=== PATIENT | male | born 1995 | race Caucasian/White ===

== ENCOUNTER 2017-01-20 16:18 | Emergency (ER) | payer OTHER ==
[2017-01-20 16:34] VITALS: BP 138/71
--- NOTE | 2017-01-22 08:01 | ED ---
Laceration/Wound HPI - HPI Summary HPI Summary: Patient arrives to ED after injury to the nail bed of the left index finger with a knife while cutting vegetables about 1 hour ago. Bleeding was minimal. Nail has been cut through. Pulses intact bilaterally, denies numbness and tingling. Denies other injuries. Denies blood thinners or other medications. - History of Current Complaint Stated Complaint: LT INDEX FINGER LAC Time Seen by Provider: 01/20/17 16:41 Hx Obtained From: Patient Mechanism of Injury: Sharp/Blunt Trauma Onset/Duration: Sudden Onset Aggravating: Nothing Alleviating: Compression Timing: Constant Onset Severity: Mild Current Severity: Mild Pain Intensity: 3 Pain Scale Used: 0-10 Numeric Associated Signs & Symptoms: Negative Related Hx: Dominant Hand (Right), Recent Trauma - Additional Pertinent History Primary Care Physician: [id number] - Allergy/Home Medications Allergies/Adverse Reactions: Allergies Allergy/AdvReac Type Severity Reaction Status Date / Time Latex Allergy Mild Itching Verified 08/31/16 11:19 PMH/Surg Hx/FS Hx/Imm Hx Previously Healthy: Yes Endocrine/Hematology History: Denies: Hx Diabetes Cardiovascular History: Denies: Hx Hypertension, Hx Pacemaker/ICD Respiratory History: Reports: Hx Asthma - very mild GI History: Reports: Hx Obstructive Bowel - 2 years ago, Other GI Disorders - hernia, unsure what kind -- right groin region History: Denies: Hx Dialysis, Hx Renal Disease Musculoskeletal History: Reports: Other Musculoskeletal History - growth plate in ankle fx in 4th grade Sensory History: Reports: Hx Contacts or Glasses Denies: Hx Hearing Aid Opthamlomology History: Reports: Hx Contacts or Glasses Neurological History: Reports: Hx Headaches, Hx Migraine Denies: Hx Seizures Psychiatric History: Reports: Hx Anxiety, Hx Attention Deficit Hyperactivity Disorder, Hx Depression, Hx Panic Disorder - ANXIETY DISORDER, Hx Inpatient Treatment, Hx Community Mental Health Tx, Hx Bipolar Disorder, Hx Suicide Attempt, Other Psychiatric Issues/Disorders - OCD Denies: Hx Eating Disorder, Hx of Violent Episodes Against Others - Surgical History Surgery Procedure, Year, and Place: hernia repair in 4th grade and 10th grade Hx Anesthesia Reactions: No Infectious Disease History: No Infectious Disease History: Denies: Traveled Outside the [place] in Last 30 Days - Family History Known Family History: Negative: Other - hernia - Social History Occupation: Student Lives: Alone Alcohol Use: Rare Hx Substance Use: No Substance Use Type: Reports: None Hx Tobacco Use: No Smoking Status (MU): Never Smoked Tobacco Review of Systems Constitutional: Negative Cardiovascular: Negative Respiratory: Negative Gastrointestinal: Negative Positive: no symptoms reported, see HPI Musculoskeletal: Negative Positive: Other - small .5cm laceration to the nail bed. Neurological: Negative Psychological: Normal All Other Systems Reviewed And Are Negative: Yes Physical Exam Triage Information Reviewed: Yes Vital Signs On Initial Exam: Initial Vitals Temp Pulse Resp BP Pulse Ox 98.6 F 81 18 138/71 100 01/20/17 16:31 01/20/17 16:31 01/20/17 16:31 01/20/17 16:31 01/20/17 16:31 Vital Signs Reviewed: Yes Appearance: Positive: Well-Appearing, Well-Nourished Skin: Positive: Warm, Skin Color Reflects Adequate Perfusion, Other - .5cm laceration to the radial side of the nail bed of the left index finger not involving base of the nail. Eyes: Positive: EOMI, AMARILIS, Conjunctiva Clear Neck: Positive: Supple, Nontender Respiratory/Lung Sounds: Positive: Breath Sounds Present Cardiovascular: Positive: Normal Musculoskeletal: Positive: Normal, Strength/ROM Intact Neurological: Positive: Sensory/Motor Intact, Normal Gait, Speech Normal, Other - pinprick test normal Diagnostics - Vital Signs Vital Signs Temp Pulse Resp BP Pulse Ox 01/20/17 18:53 98.3 F 01/20/17 16:31 98.6 F 81 18 138/71 100 - Laboratory Lab Statement: Any lab studies that have been ordered have been reviewed, and results considered in the medical decision making process. Laceration Repair Course/Dx - Course Course Of Treatment: digital block of left index finger. nail removed. no laceration of the skin under the nail. xeroform occlusive gauze applied. wrapped with gauze. patient tolerated well. discharge instructions included care for wound and follow up if needed at [facility]. Patient agrees with plan. - Differential Dx Differental Diagnoses: Laceration, Puncture Wound, Tendon Laceration - Clinical Impression Provider Diagnoses: Nail avulsion, finger Discharge - Discharge Plan Condition: Stable Disposition: HOME Patient Education Materials: Toenail/Fingernail Removal (ED), Nail Avulsion (ED ) Referrals: Amanda Ingram MD [Primary Care Provider] - Additional Instructions: Follow up with your PCP as needed. If you develop signs of infection such as redness, warmth, discharge or you develop a fever.
== END 2017-01-20 18:53 | disposition home or self-care (01) ==
LOC: ED 16:18
DX: S61.211A Laceration without foreign body of left index finger without damage to nail, initial encounter (principal); W26.0XXA Contact with knife, initial encounter; Y93.9 Activity, unspecified; Y92.9 Unspecified place or not applicable
CPT/HCPCS: 99282

== ENCOUNTER 2017-02-06 19:42 | Emergency (ER) | payer OTHER ==
[2017-02-06 21:25] LABS: Hematocrit 48 % (42-52); Hemoglobin 15.9 g/dl (14.0-18.0); Mean Corpuscular HGB Conc 33 g/dl (31-36); Mean Corpuscular Hemoglobin 28 pg (27-31); Mean Corpuscular Volume 86 fL (80-94); Mean Platelet Volume 9 um3 (7.4-10.4); Red Blood Count 5.59 10^6/ul (4.0-5.4); Red Cell Distribution Width 14 % (10.5-15); White Blood Count 11.4 10^3/ul (3.5-10.8)
[2017-02-06 21:40] LABS: Albumin 4.5 g/dL (3.2-5.2); BUN/Creatinine Ratio 17.2 (8-20); C Reactive Protein 2.06 mg/L (< 5.00); Calcium 9.4 mg/dL (8.6-10.3); EGFR African American 133.2 (>60); EGFR Non-African American 103.6 (>60); Globulin 2.7 g/dL (2-4); Potassium 3.6 mmol/L (3.5-5.0); Total Bilirubin 0.3 mg/dL (0.2-1.0); Total Protein 7.2 g/dL (6.4-8.9)
[2017-02-06 22:22] VITALS: BP 111/71
--- NOTE | 2017-02-22 07:35 | ED ---
layne Hoover Timothy, scribed for Jadon Hendrix MD on 02/06/17 at 2040 . Abdominal Pain/Male - HPI Summary HPI Summary: Bautista Faith is a 21 yo male presenting to [facility] with drainage and 7/10 chronic right groin pain and clear lymph discharge from a previous surgical site. His girl friend is present in room. Pt states surgery was in [place] for correction of complications from hernia repair, in which mesh had migrated down into the groin, side effects included lymph edema. The surgery also involved gluing some lymph vessels shut. This afternoon he states he "burst a leak" and has been exuding clear lymph fluid. The problem has not resolved even after several hours. He states he is currently dehydrated due to loss of fluid. His MHx includes migraine, asthma, obstructive bowel, hernia right groin, ADHD, bipolar disorder, panic/anxiety disorder, depression, OCD, suicide attempt. - History of Current Complaint Chief Complaint: EDAbdPain Stated Complaint: DRAINAGE FROM SURGICAL SITE Time Seen by Provider: 02/06/17 20:05 Hx Obtained From: Patient Onset/Duration: Sudden Onset, Lasting Days, Still Present Timing: Constant Severity Initially: Moderate Severity Currently: Moderate Pain Intensity: 7 Pain Scale Used: 0-10 Numeric Location: Groin - right side Radiates: No Aggravating Factor(s): Nothing Alleviating Factor(s): Nothing Associated Signs And Symptoms: Positive: Negative - Allergies/Home Medications Allergies/Adverse Reactions: Allergies Allergy/AdvReac Type Severity Reaction Status Date / Time Latex Allergy Mild Itching Verified 08/31/16 11:19 PMH/Surg Hx/FS Hx/Imm Hx Endocrine/Hematology History: Denies: Hx Diabetes Cardiovascular History: Denies: Hx Hypertension, Hx Pacemaker/ICD Respiratory History: Reports: Hx Asthma - very mild GI History: Reports: Hx Obstructive Bowel - 2 years ago, Other GI Disorders - hernia, unsure what kind -- right groin region History: Denies: Hx Dialysis, Hx Renal Disease Musculoskeletal History: Reports: Other Musculoskeletal History - growth plate in ankle fx in 4th grade Sensory History: Reports: Hx Contacts or Glasses Denies: Hx Hearing Aid Opthamlomology History: Reports: Hx Contacts or Glasses Neurological History: Reports: Hx Headaches, Hx Migraine Denies: Hx Seizures Psychiatric History: Reports: Hx Anxiety, Hx Attention Deficit Hyperactivity Disorder, Hx Depression, Hx Panic Disorder - ANXIETY DISORDER, Hx Inpatient Treatment, Hx Community Mental Health Tx, Hx Bipolar Disorder, Hx Suicide Attempt, Other Psychiatric Issues/Disorders - OCD Denies: Hx Eating Disorder, Hx of Violent Episodes Against Others - Surgical History Surgery Procedure, Year, and Place: hernia repair in 4th grade and 10th grade Hx Anesthesia Reactions: No Infectious Disease History: Denies: Traveled Outside the [place] in Last 30 Days - Family History Known Family History: Positive: Other - bipolar disorder, anxiety, depression - Social History Alcohol Use: Rare Hx Substance Use: No Substance Use Type: Reports: None Hx Tobacco Use: No Smoking Status (MU): Never Smoked Tobacco Review of Systems Constitutional: Other - "feels dehydrated" Negative: Fever, Chills Eyes: Negative Negative: Erythema ENT: Negative Negative: Sore Throat Cardiovascular: Negative Negative: Chest Pain Respiratory: Negative Negative: Shortness Of Breath, Cough Gastrointestinal: Other - exuding clear lymph fluid from surgical site in right groin Positive: Abdominal Pain - groin. Negative: Vomiting, Nausea Genitourinary: Negative Negative: dysuria, hematuria Musculoskeletal: Negative Negative: Myalgia, Edema - legs Positive: Other - drainage from surgical site in right groin. Negative: Rash Neurological: Negative Psychological: Normal All Other Systems Reviewed And Are Negative: Yes Physical Exam - Summary Physical Exam Summary: Constitutional: Well-developed, Well-nourished, Alert. (-) Distressed Skin: Warm, Dry HENT: Normocephalic; Atraumatic Eyes: Conjunctiva normal Neck: Musculoskeletal ROM normal neck. (-) JVD, (-) Stridor, (-) Tracheal deviation Cardio: Rhythm regular, rate normal, Heart sounds normal; Intact distal pulses; The pedal pulses are 2+ and symmetric. Radial pulses are 2+ and symmetric. (-) Murmur Pulmonary/Chest wall: Effort normal. (-) Respiratory distress, (-) Wheezes, (-) Rales Abd: Soft, (-) Tenderness, (-) Distension, (-) Guarding, (-) Rebound. Serous fluid leaking from open pore in the right inguinal region. no induration, no erythema, no tenderness to palpation, easy to exude fluid with pressure, fluid is not malodorous Musculoskeletal: (-) Edema Lymph: (-) Cervical adenopathy Neuro: Alert, Oriented x3 Psych: Mood and affect Normal Triage Information Reviewed: Yes Vital Signs On Initial Exam: Initial Vitals Temp Pulse Resp BP Pulse Ox 97.9 F 72 18 132/82 100 02/06/17 19:45 02/06/17 19:45 02/06/17 19:45 02/06/17 19:45 02/06/17 19:45 Vital Signs Reviewed: Yes Diagnostics - Vital Signs Vital Signs Temp Pulse Resp BP Pulse Ox 02/06/17 19:45 97.9 F 72 18 132/82 100 - Laboratory Result Diagrams: 02/06/17 21:15 02/06/17 21:15 Lab Statement: Any lab studies that have been ordered have been reviewed, and results considered in the medical decision making process. Abdominal Pain Fem Course/Dx - Course Assessment/Plan: Bautista Faith is a 21 yo male presenting to [facility] with 7/10 right groin pain and drainage from a surgical site for correction of complications of hernia repair. Pt requested not to have a CT A/P done. After clinical examination, and review of his lab work, as well as discussion with Dr. Batres, he will be discharged home with lymphangioma. He was encouraged to engage in isotonic replacemnet of 2-3 L. - Diagnoses Provider Diagnoses: Lymphangioma - Provider Notifications Discussed Care Of Patient With: 2153 - Dr. Batres (surgery) - discussed Pt condition and best options for out-patient follow-up. Recommends Pt see him for follow up. Discharge - Discharge Plan Condition: Stable Disposition: HOME Patient Education Materials: Lymphadenopathy (ED) Forms: *School Release Referrals: Amanda Ingram MD [Primary Care Provider] - Lyle Batres MD [Medical Doctor] - 3 Days Additional Instructions: Please follow up with Dr. Batres regarding your visit to the emergency department today. Return to the emergency department with any new or recurring symptoms. The documentation as recorded by the layne kline Timothy accurately reflects the service I personally performed and the decisions made by me, Jadon Hendrix MD.
== END 2017-02-06 22:20 | disposition home or self-care (01) ==
LOC: ED 19:42
DX: D18.1 Lymphangioma, any site (principal); R10.30 Lower abdominal pain, unspecified
CPT/HCPCS: 36415; 80053; 85025; 86140; 99282

== ENCOUNTER 2017-02-08 11:13 | Emergency (ER) | payer OTHER ==
[2017-02-08 13:17] LABS: Hematocrit 48 % (42-52); Hemoglobin 16.3 g/dl (14.0-18.0); Mean Corpuscular HGB Conc 34 g/dl (31-36); Mean Corpuscular Hemoglobin 29 pg (27-31); Mean Corpuscular Volume 85 fL (80-94); Mean Platelet Volume 9 um3 (7.4-10.4); Red Blood Count 5.62 10^6/ul (4.0-5.4); Red Cell Distribution Width 14 % (10.5-15); White Blood Count 8.4 10^3/ul (3.5-10.8)
[2017-02-08 13:34] LABS: Albumin 4.3 g/dL (3.2-5.2); BUN/Creatinine Ratio 14.4 (8-20); C Reactive Protein 2.07 mg/L (< 5.00); Calcium 9.4 mg/dL (8.6-10.3); EGFR African American 138.4 (>60); EGFR Non-African American 107.6 (>60); Globulin 2.6 g/dL (2-4); Potassium 3.9 mmol/L (3.5-5.0); Total Bilirubin 0.4 mg/dL (0.2-1.0); Total Protein 6.9 g/dL (6.4-8.9)
--- NOTE | 2017-02-08 14:03 | ED ---
Irma Hoover Alok, scribed for Nabil Aviles MD on 02/08/17 at 1254 . Lower Extremity - HPI Summary HPI Summary: 21 y/o male presents to the ED with a discharge coming from his right groin area. This discharge is localized to the region of the groin where pt last had surgery for Lymphedema done at the pt's residence in [place], [place]. This surgery done in November was preceded by two hernia surgeries in 2005 and 2011. Currently, pt's right groin area has been leaking for the past three days, slowing down while in supine position. Pt also complains to neck pain. Pt denies tobacco, EtOH, or drug use. - History of Current Complaint Chief Complaint: EDGeneral Stated Complaint: RIGHT GROIN PAIN , Time Seen by Provider: 02/08/17 12:37 Hx Obtained From: Patient Onset of Pain: Days Onset/Duration: Days Severity Initially: Moderate Severity Currently: Moderate Pain Intensity: 6 Pain Scale Used: 0-10 Numeric Timing: Constant Location: Is Discrete @ - Right Groin Area Lymphedema Surgery region Associated Signs And Symptoms: Positive: Other - Discharge from right groin area , neck pain Aggravating Factor(s): Nothing Alleviating Factor(s): Rest - Allergies/Home Medications Allergies/Adverse Reactions: Allergies Allergy/AdvReac Type Severity Reaction Status Date / Time Latex Allergy Mild Itching Verified 08/31/16 11:19 PMH/Surg Hx/FS Hx/Imm Hx Endocrine/Hematology History: Denies: Hx Diabetes Cardiovascular History: Denies: Hx Hypertension, Hx Pacemaker/ICD Respiratory History: Reports: Hx Asthma - very mild GI History: Reports: Hx Obstructive Bowel - 2 years ago, Other GI Disorders - hernia, unsure what kind -- right groin region History: Denies: Hx Dialysis, Hx Renal Disease Musculoskeletal History: Reports: Other Musculoskeletal History - growth plate in ankle fx in 4th grade Sensory History: Reports: Hx Contacts or Glasses Denies: Hx Hearing Aid Opthamlomology History: Reports: Hx Contacts or Glasses Neurological History: Reports: Hx Headaches, Hx Migraine Denies: Hx Seizures Psychiatric History: Reports: Hx Anxiety, Hx Attention Deficit Hyperactivity Disorder, Hx Depression, Hx Panic Disorder - ANXIETY DISORDER, Hx Inpatient Treatment, Hx Community Mental Health Tx, Hx Bipolar Disorder, Hx Suicide Attempt, Other Psychiatric Issues/Disorders - OCD Denies: Hx Eating Disorder, Hx of Violent Episodes Against Others - Surgical History Surgery Procedure, Year, and Place: hernia repair in 4th grade and 10th grade Hx Anesthesia Reactions: No Infectious Disease History: No Infectious Disease History: Denies: Traveled Outside the US in Last 30 Days - Family History Known Family History: Negative: Other - hernia - Social History Occupation: Student Alcohol Use: Rare Hx Substance Use: No Substance Use Type: Reports: None Hx Tobacco Use: No Smoking Status (MU): Never Smoked Tobacco Review of Systems Negative: Fever Positive: other - Right Groin pain with discharge at post surgury region Positive: Other - neck pain All Other Systems Reviewed And Are Negative: Yes Physical Exam - Summary Physical Exam Summary: VITAL SIGNS: Reviewed. GENERAL: ~Patient is a well developed and nourished male who is lying comfortable in the stretcher. ~Patient is not in any acute respiratory distress. HEAD AND FACE: Normocephalic EYES: PERRLA, EOMI x 2. EARS: Hearing grossly intact. MOUTH: Oropharynx within normal limits. NECK: Supple, trachea is midline, no adenopathy, no JVD, no carotid bruit. CHEST: Symmetric, no tenderness at palpation LUNGS: Clear to auscultation bilaterally. No wheezing or crackles. CVS: Regular rate and rhythm, S1 and S2 present, no murmurs or gallops appreciated. ABDOMEN: Soft, non-tender. Bowel sounds are normal. No abdominal abnormal pulsations. EXTREMITIES: Full ROM in all major joints, no edema, no cyanosis or clubbing. NEURO: Alert and oriented x 3. No acute neurological deficits. Speech is normal and follows commands. SKIN: Dry and warm GROIN: Femoral hernia with no bulging or leaking of any fluids. Triage Information Reviewed: Yes Vital Signs On Initial Exam: Initial Vitals Temp Pulse Resp BP Pulse Ox 97.2 F 62 16 129/67 100 02/08/17 11:15 02/08/17 11:15 02/08/17 11:15 02/08/17 11:15 02/08/17 11:15 Vital Signs Reviewed: Yes - Danica Coma Scale Coma Scale Total: 15 Diagnostics - Vital Signs Vital Signs Temp Pulse Resp BP Pulse Ox 02/08/17 12:10 61 98 02/08/17 12:08 98.7 F 69 20 142/75 98 02/08/17 11:15 97.2 F 62 16 129/67 100 - Laboratory Lab Results: Lab Results 02/08/17 02/08/17 02/08/17 Range/Units 13:09 13:09 13:09 WBC 8.4 (3.5-10.8) 10^3/ul RBC 5.62 H (4.0-5.4) 10^6/ul Hgb 16.3 (14.0-18.0) g/dl Hct 48 (42-52) % MCV 85 (80-94) fL MCH 29 (27-31) pg MCHC 34 (31-36) g/dl RDW 14 (10.5-15) % Plt Count 184 (150-450) 10^3/ul MPV 9 (7.4-10.4) um3 Neut % (Auto) 60.9 (38-83) % Lymph % (Auto) 27.5 (25-47) % [place] % (Auto) 8.0 (1-9) % Eos % (Auto) 2.3 (0-6) % Baso % (Auto) 1.3 (0-2) % Absolute Neuts (auto) 5.1 (1.5-7.7) 10^3/ul Absolute Lymphs (auto) 2.3 (1.0-4.8) 10^3/ul Absolute Monos (auto) 0.7 (0-0.8) 10^3/ul Absolute Eos (auto) 0.2 (0-0.6) 10^3/ul Absolute Basos (auto) 0.1 (0-0.2) 10^3/ul Absolute Nucleated RBC 0.01 10^3/ul Nucleated RBC % 0.1 Sodium 139 (133-145) mmol/L Potassium 3.9 (3.5-5.0) mmol/L Chloride 107 (101-111) mmol/L Carbon Dioxide 28 (22-32) mmol/L Anion Gap 4 (2-11) mmol/L BUN 13 (6-24) mg/dL Creatinine 0.90 (0.67-1.17) mg/dL Est GFR ( Amer) 138.4 (>60) Est GFR (Non-Af Amer) 107.6 (>60) BUN/Creatinine Ratio 14.4 (8-20) Glucose 93 (70-100) mg/dL Lactic Acid 1.3 (0.5-2.0) mmol/L Calcium 9.4 (8.6-10.3) mg/dL Total Bilirubin 0.40 (0.2-1.0) mg/dL AST 21 (13-39) U/L ALT 61 H (7-52) U/L Alkaline Phosphatase 65 (34-104) U/L C-Reactive Protein 2.07 (< 5.00) mg/L Total Protein 6.9 (6.4-8.9) g/dL Albumin 4.3 (3.2-5.2) g/dL Globulin 2.6 (2-4) g/dL Albumin/Globulin Ratio 1.7 (1-3) Lipase 17 (11.0-82.0) U/L Result Diagrams: 02/08/17 13:09 02/08/17 13:09 Lab Statement: Any lab studies that have been ordered have been reviewed, and results considered in the medical decision making process. Lower Extremity Course/Dx - Course Course Of Treatment: 21 y/o male presents to the ED with a discharge coming from his right groin area. This discharge is localized to the region of the groin where pt last had surgery for Lymphedema done at the pt's residence in [place], [place]. This surgery done in November was preceded by two hernia surgeries in 2005 and 2011. Currently, pt's right groin area has been leaking for the past three days, slowing down while in supine position. Pt also complains to neck pain. Pt denies tobacco, EtOH, or drug use. Assessment/Plan: Blood work wnl. No signs of infection. Lymph leakage shows decreased. He will f/u with vascular surgeon at [facility]. There are no signs of incarcerated hernia. Patient did not require pain medications. I discussed all the findings and test results with the patient. Patient was instructed to return to the emergency room immediately if any of the symptoms return or worsens. Plan of care was discussed with the patient and understands and agrees. All questions were answered at patient satisfaction. There were no further complaints or concerns. Lung exam before discharge: CTA B /L. Good air exchange. No wheezing or crackles heard. CVS: S1 and S2 present. No murmurs appreciated. Patient is alert and oriented x 3. Patient is hemodynamically stable. Patient will be discharged home with follow up incident response engineer in the next 2-3 days - Diagnoses Differential Diagnosis/HQI/PQRI: Positive: Bursitis, Cellulitis, Infection, Other - Hernia Provider Diagnoses: Lymph leak Discharge - Discharge Plan Condition: Stable Disposition: HOME Referrals: Amanda Ingram MD [Primary Care Provider] - Nick Bacon MD [Medical Doctor] - 3 Days Additional Instructions: Please follow up with Dr. Bacon (Vascular Surgeon) in the next few days. The documentation as recorded by the Irma klien Alok accurately reflects the service I personally performed and the decisions made by Stefan vazquez Walter, MD.
[2017-02-08 14:23] LABS: Urine Bilirubin Negative (Negative); Urine Glucose Negative (Negative); Urine Nitrite Negative (Negative)
[2017-02-08 14:24] VITALS: BP 117/66
== END 2017-02-08 14:23 | disposition home or self-care (01) ==
LOC: ED 11:13
DX: I89.8 Other specified noninfective disorders of lymphatic vessels and lymph nodes (principal); M54.2 Cervicalgia
CPT/HCPCS: 36415; 80053; 81003; 83605; 83690; 85025; 86140; 99283

== ENCOUNTER 2017-12-11 18:45 | Emergency (ER) | payer OTHER ==
[2017-12-11] MEDS ORDERED: Albuterol 2.5 MG/3 ML NEB.SOL* (0.083%) INH ONE (19:10)
[2017-12-11] MEDS ORDERED: NS 0.9% 1000 ML* 1,000 ML IV ONE (19:10)
[2017-12-11 19:26] LABS: ABS Basophils 0.1 10^3/ul (0-0.2); ABS Eosinophils 0.2 10^3/ul (0-0.6); ABS Lymphocytes 1.7 10^3/ul (1.0-4.8); ABS Monocytes 0.5 10^3/ul (0-0.8); ABS Neutrophils 3.9 10^3/ul (1.5-7.7); ABS Nucleated RBC 0 10^3/ul; Eosinophil % 2.9 % (0-6); Hematocrit 47 % (42-52); Hemoglobin 16.1 g/dl (14.0-18.0); Lymphocyte % 26.7 % (25-47); Mean Corpuscular HGB Conc 35 g/dl (31-36); Mean Corpuscular Hemoglobin 31 pg (27-31); Mean Corpuscular Volume 90 fL (80-94); Mean Platelet Volume 8 um3 (7.4-10.4); Nucleated Red Blood Cells % 0; Platelet Count 173 10^3/ul (150-450); Red Blood Count 5.19 10^6/ul (4.0-5.4); Red Cell Distribution Width 14 % (10.5-15); White Blood Count 6.4 10^3/ul (3.5-10.8)
[2017-12-11] MEDS ORDERED: Mometasone/Formoter 200/5 MDI INH ONE (19:32)
[2017-12-11] MEDS ORDERED: Montelukast Sodium TAB* 10 MG PO ONE (19:32)
[2017-12-11] MEDS ORDERED: Fluticasone-Salmeterol 500-50* DISKUS INH ONE (19:32)
[2017-12-11 19:41] LABS: EGFR Non-African American 84.5 (>60)
--- NOTE | 2017-12-11 19:41 | RAD ---
HISTORY: Cough COMPARISONS: December 10, 2017 VIEWS: 4: Frontal dual-energy and lateral views of the chest. FINDINGS: CARDIOMEDIASTINAL SILHOUETTE: The cardiomediastinal silhouette is normal. RAHEL: The rahel are normal. PLEURA: The costophrenic angles are sharp. No pleural abnormalities are noted. LUNG PARENCHYMA: The lungs are clear. ABDOMEN: The upper abdomen is clear. There is no subphrenic gas. BONES AND SOFT TISSUES: No bone or soft tissue abnormalities are noted. OTHER: None. IMPRESSION: NO ACTIVE CARDIOPULMONARY DISEASE.
--- NOTE | 2017-12-11 21:37 | ED ---
Taina Hoover Julia, scribed for Sukhi Izaguirre MD on 12/11/17 at 1931 . Complex/Multi-Sys Presentation - HPI Summary HPI Summary: This patient is a 22 year old M presenting to [facility] with a chief complaint of worsening cough and flu-like symptoms for the past 5 weeks. Patient reports cough with bloody sputum, SOB, headache, chest and abdominal soreness. The patient rates the pain 7/10 in severity. Symptoms aggravated by deep breaths. Patient is unsure if cold or flu. He has been taking antibiotics for past 10 days with a dx of bronchitis. He reports recent CXR is negative for PNA. - History Of Current Complaint Chief Complaint: EDFluSymptoms Hx Obtained From: Patient Onset/Duration: Lasting Weeks, Still Present Timing: Constant Severity Currently: Mild Severity Initially: Moderate Aggravating Factor(s): deep breaths Associated Signs And Symptoms: Positive: Other - cough with bloody sputum, SOB, headache, chest and abdominal soreness Related History: Recent Illness, Similar Episode/Diagnosed As: - bronchitis - Allergies/Home Medications Allergies/Adverse Reactions: Allergies Allergy/AdvReac Type Severity Reaction Status Date / Time MS Latex [Latex] Allergy Mild Itching Verified 10/03/17 15:18 PMH/Surg Hx/FS Hx/Imm Hx Endocrine/Hematology History: Denies: Hx Diabetes Cardiovascular History: Denies: Hx Hypertension, Hx Pacemaker/ICD Respiratory History: Reports: Hx Asthma - very mild GI History: Reports: Hx Obstructive Bowel - 2 years ago, Other GI Disorders - hernia, unsure what kind -- right groin region History: Denies: Hx Dialysis, Hx Renal Disease Musculoskeletal History: Reports: Other Musculoskeletal History - growth plate in ankle fx in 4th grade Sensory History: Reports: Hx Contacts or Glasses Denies: Hx Hearing Aid Opthamlomology History: Reports: Hx Contacts or Glasses Neurological History: Reports: Hx Headaches, Hx Migraine Denies: Hx Seizures Psychiatric History: Reports: Hx Anxiety, Hx Attention Deficit Hyperactivity Disorder, Hx Depression, Hx Panic Disorder - ANXIETY DISORDER, Hx Inpatient Treatment, Hx Community Mental Health Tx, Hx Bipolar Disorder, Hx Suicide Attempt, Other Psychiatric Issues/Disorders - OCD Denies: Hx Eating Disorder, Hx of Violent Episodes Against Others - Surgical History Surgery Procedure, Year, and Place: hernia repair in 4th grade and 10th grade. HERNIA REPAIR 11/2015 WITH MESH Hx Anesthesia Reactions: No Infectious Disease History: No Infectious Disease History: Denies: Traveled Outside the [place] in Last 30 Days - Family History Known Family History: Negative: Other - hernia - Social History Alcohol Use: Rare Hx Substance Use: No Substance Use Type: Reports: None Hx Tobacco Use: No Smoking Status (MU): Never Smoked Tobacco Review of Systems Positive: Ear Ache Cardiovascular: Negative Positive: Chest Pain Positive: Shortness Of Breath, Cough Positive: Abdominal Pain Genitourinary: Negative Positive: no symptoms reported Musculoskeletal: Negative Skin: Negative Positive: Headache Positive: Anxious, Depressed All Other Systems Reviewed And Are Negative: Yes Physical Exam - Summary Physical Exam Summary: Appearance: Well-appearing, Well-nourished Skin: Warm, Dry, No rash Eyes: Normal, PERRL, EOMI, sclera anicteric ENT: Normal, TM normal, was unable to see pharynx Neck: Supple, nontender Respiratory: Bilateral Rhonchi without wheezes Cardiovascular: S1, S2, no murmur, no rub, no gallop Abdomen: Soft, nontender, no organomegaly Bowel sounds: Present Musculoskeletal: Normal, Strength/ROM Intact, no edema, pulses symmetrical Neurological: Normal, A&Ox3, cranial nerves II-XII WNL, follows commands, gait not tested, sensation intact to pin and light touch Psychiatric: affect normal, behavior appropriate, dressed appropriately, judgment intact Triage Information Reviewed: Yes Vital Signs On Initial Exam: Initial Vitals Temp Pulse Resp BP Pulse Ox 98.9 F 86 20 139/77 97 12/11/17 18:49 12/11/17 18:49 12/11/17 18:49 12/11/17 18:49 12/11/17 18:49 Vital Signs Reviewed: Yes Diagnostics - Vital Signs Vital Signs Temp Pulse Resp BP Pulse Ox 12/11/17 18:49 98.9 F 86 20 139/77 97 - Laboratory Lab Results: Lab Results 12/11/17 12/11/17 12/11/17 Range/Units 19:15 19:15 19:30 WBC 6.4 (3.5-10.8) 10^3/ul RBC 5.19 (4.0-5.4) 10^6/ul Hgb 16.1 (14.0-18.0) g/dl Hct 47 (42-52) % MCV 90 (80-94) fL MCH 31 (27-31) pg MCHC 35 (31-36) g/dl RDW 14 (10.5-15) % Plt Count 173 (150-450) 10^3/ul MPV 8 (7.4-10.4) um3 Neut % (Auto) 60.6 (38-83) % Lymph % (Auto) 26.7 (25-47) % Harris % (Auto) 8.4 (1-9) % Eos % (Auto) 2.9 (0-6) % Baso % (Auto) 1.4 (0-2) % Absolute Neuts (auto) 3.9 (1.5-7.7) 10^3/ul Absolute Lymphs (auto) 1.7 (1.0-4.8) 10^3/ul Absolute Monos (auto) 0.5 (0-0.8) 10^3/ul Absolute Eos (auto) 0.2 (0-0.6) 10^3/ul Absolute Basos (auto) 0.1 (0-0.2) 10^3/ul Absolute Nucleated RBC 0 10^3/ul Nucleated RBC % 0 Sodium 140 (133-145) mmol/L Potassium 3.9 (3.5-5.0) mmol/L Chloride 105 (101-111) mmol/L Carbon Dioxide 26 (22-32) mmol/L Anion Gap 9 (2-11) mmol/L BUN 12 (6-24) mg/dL Creatinine 1.10 (0.67-1.17) mg/dL Est GFR ( Amer) 108.7 (>60) Est GFR (Non-Af Amer) 84.5 (>60) BUN/Creatinine Ratio 10.9 (8-20) Glucose 88 (70-100) mg/dL Calcium 9.5 (8.6-10.3) mg/dL Total Bilirubin 0.30 (0.2-1.0) mg/dL AST 17 (13-39) U/L ALT 41 (7-52) U/L Alkaline Phosphatase 74 (34-104) U/L Total Protein 6.9 (6.4-8.9) g/dL Albumin 4.6 (3.2-5.2) g/dL Globulin 2.3 (2-4) g/dL Albumin/Globulin Ratio 2.0 (1-3) Influenza A (Rapid) Negative (Negative) Influenza B (Rapid) Negative (Negative) Result Diagrams: 12/11/17 19:15 12/11/17 19:15 Lab Statement: Any lab studies that have been ordered have been reviewed, and results considered in the medical decision making process. - Radiology CXR Radiology Interpretation Completed By: Radiologist - NO ACTIVE CARDIOPULMONARY DISEASE. ED Physician has reviewed this report. Complex Multi-Symp Course/Dx Course Of Treatment: Pt presents with worsening cough and flu-like symptoms for the past 5 weeks. Patient reports cough with bloody sputum, SOB, headache, chest and abdominal soreness. Symptoms aggravated by deep breaths. Pt has recent dx of bronchitis. He states recent CXR is negative for PNA. CXR in ED is of no acute concern. Lab results are unremarkable. Pt is given Singulair, Advair (inhaler), IV fluids, and nebulizer treatment. - Diagnoses Provider Diagnoses: Asthma Discharge - Discharge Plan Condition: Good Disposition: HOME Prescriptions: Albuterol Sulfate [Proventil Hfa] 108 mcg IN Q6HR PRN 30 Days #1 aer PRN Reason: Cough Fluticasone-Salmeterol 500-50* [Advair Diskus 500-50*] 1 puff INH BID #1 diskus MDD 2 Montelukast Sodium TAB* [Singulair TAB*] 10 mg PO BEDTIME #30 tab Patient Education Materials: Asthma (ED) Referrals: Amanda Ingram MD [Primary Care Provider] - The documentation as recorded by the Taina kline Julia accurately reflects the service I personally performed and the decisions made by , Sukhi Izaguirre MD.
[2017-12-11 22:31] VITALS: BP 110/58
== END 2017-12-11 22:30 | disposition home or self-care (01) ==
LOC: ED 18:45
DX: J45.909 Unspecified asthma, uncomplicated (principal)
CPT/HCPCS: 36415; 71046; 80053; 85025; 87502; 94640; 96360; 96361; 99284; A9270-GY

== ENCOUNTER 2018-02-03 11:20 | Inpatient (IN) | payer OTHER ==
[2018-02-03 12:27] LABS: ABS Basophils 0 10^3/ul (0-0.2); ABS Eosinophils 0.2 10^3/ul (0-0.6); ABS Lymphocytes 1.7 10^3/ul (1.0-4.8); ABS Monocytes 0.6 10^3/ul (0-0.8); ABS Neutrophils 4.2 10^3/ul (1.5-7.7); ABS Nucleated RBC 0 10^3/ul; Eosinophil % 3.1 % (0-6); Hematocrit 46 % (42-52); Hemoglobin 15.9 g/dl (14.0-18.0); Lymphocyte % 25.2 % (25-47); Mean Corpuscular HGB Conc 35 g/dl (31-36); Mean Corpuscular Hemoglobin 31 pg (27-31); Mean Corpuscular Volume 90 fL (80-94); Mean Platelet Volume 8.9 um3 (7.4-10.4); Nucleated Red Blood Cells % 0.1; Platelet Count 177 10^3/ul (150-450); Red Blood Count 5.09 10^6/ul (4.0-5.4); Red Cell Distribution Width 13 % (10.5-15); White Blood Count 6.6 10^3/ul (3.5-10.8)
[2018-02-03 12:30] LABS: Urine Appearance Clear; Urine Blood 1+ (Negative); Urine Color Yellow; Urine Ketones Negative (Negative); Urine Protein Negative (Negative); Urine Specific Gravity 1.023 (1.010-1.030); Urine Urobilinogen Negative (Negative)
[2018-02-03 12:43] LABS: EGFR Non-African American 98.9 (>60)
[2018-02-03] MEDS ORDERED: Acetaminophen TAB* 325 MG PO PRN (20:57)
[2018-02-03] MEDS ORDERED: Al Hydrox/Mg Hydrox/Simet LIQ* 30 ML UDC PO PRN (20:57)
--- NOTE | 2018-02-03 21:09 | ED ---
Kary Hoover Nilda, scribed for Elizabeth Peterson MD on 02/03/18 at 1141 . Psychiatric Complaint - HPI Summary HPI Summary: This patient is a 22 year old M presenting to [facility] with a chief complaint of constant severe depression for the past 1.5 weeks. The patient rates the pain 0 /10 in severity. Patient reports SI with plan to overdose on Hydroxyzine and alcohol, insomnia, and chronic pain secondary to lymphedema. Patient denies HI, and current auditory hallucinations. He states auditory hallucinations appear during manic states. Pt states he has been abusing his Hydroxazine (taking maximum dosage) to help him sleep at night. For the past month pt notes he has been cycling between manic and depressed states. He states 2 previous suicide attempts as well as hospitalization for mental health issues in high school. PMHx includes Bipolar I, lymphedema (a few years ago), Laproscopic hernia repair , Tendonitis bilat wrist, bilat intermittent tinnitus, and migraines. - History Of Current Complaint Chief Complaint: EDMentalHealth Time Seen by Provider: 02/03/18 11:31 Hx Obtained From: Patient Onset/Duration: Sudden Onset, Lasting Weeks, Still Present Timing: Constant Severity Currently: Severe Character: Depressed Alleviating Factor(s): Nothing Associated Signs And Symptoms: Positive: Sleep Disturbance Related History: Positive For: Prior Psychiatric Issues Has Suicidal: Reports: Thoughts, With A Plan, Has Prior Attempt(s). Denies: Demonstrates Gesture Has Homicidal: Denies: Thoughts, With A Plan, Demonstrates Gesture, Has Prior Attempt(s) - Allergies/Home Medications Allergies/Adverse Reactions: Allergies Allergy/AdvReac Type Severity Reaction Status Date / Time MS Latex [Latex] Allergy Mild Itching Verified 10/03/17 15:18 Home Medications: Home Medications Albuterol HFA INHALER* [Ventolin HFA Inhaler*] 2 puff INH Q4H PRN 02/03/18 [ History Confirmed 02/03/18] Melatonin (NF) 2.5 mg PO BEDTIME 02/03/18 [History Confirmed 02/03/18] OLANzapine TAB* [Zyprexa 5 MG TAB*] 5 mg PO QPM 02/03/18 [History Confirmed 12/22] carBAMazepine ER TAB(*) [TEGretol Xr TAB(*)] 800 mg PO BID 02/03/18 [History Confirmed 02/03/18] hydrOXYzine HCL TAB* [Atarax 10 MG TAB*] 10 - 20 mg PO BEDTIME PRN 02/03/18 [ History Confirmed 02/03/18] PMH/Surg Hx/FS Hx/Imm Hx Endocrine/Hematology History: Denies: Hx Diabetes Cardiovascular History: Denies: Hx Hypertension, Hx Pacemaker/ICD Respiratory History: Reports: Hx Asthma - very mild GI History: Reports: Hx Obstructive Bowel - 2 years ago, Other GI Disorders - hernia, unsure what kind -- right groin region History: Denies: Hx Dialysis, Hx Renal Disease Musculoskeletal History: Reports: Hx Tendonitis - bilat wrist, Other Musculoskeletal History - growth plate in ankle fx in 4th grade; lymphedema Sensory History: Reports: Hx Contacts or Glasses Denies: Hx Hearing Aid Opthamlomology History: Reports: Hx Contacts or Glasses EENT History: Reports: Other - tinnitus Neurological History: Reports: Hx Headaches, Hx Migraine Denies: Hx Seizures Psychiatric History: Reports: Hx Anxiety, Hx Attention Deficit Hyperactivity Disorder, Hx Depression, Hx Panic Disorder - ANXIETY DISORDER, Hx Inpatient Treatment, Hx Community Mental Health Tx, Hx Bipolar Disorder, Hx Suicide Attempt, Other Psychiatric Issues/Disorders - OCD Denies: Hx Eating Disorder, Hx of Violent Episodes Against Others - Surgical History Surgery Procedure, Year, and Place: hernia repair in 4th grade and 10th grade. HERNIA REPAIR 11/2015 WITH MESH Hx Anesthesia Reactions: No Infectious Disease History: No Infectious Disease History: Denies: Traveled Outside the [place] in Last 30 Days - Family History Known Family History: Negative: Other - hernia - Social History Occupation: Student Lives: Dormitory/Roommates Alcohol Use: Rare Hx Substance Use: No Substance Use Type: Reports: None Hx Tobacco Use: No Smoking Status (MU): Never Smoked Tobacco Review of Systems Positive: Other - chronic pain Neurological: Other - insomnia Psychological: Other - SI;negative HI, current auditory hallucinations Positive: Depressed All Other Systems Reviewed And Are Negative: Yes Physical Exam - Summary Physical Exam Summary: GENERAL: Patient is a well developed and nourished M who is lying comfortable in the stretcher. Patient is not in any acute respiratory distress. HEAD AND FACE: Normocephalic EYES: PERRLA, EOMI x 2. EARS: Hearing grossly intact. MOUTH: Oropharynx within normal limits. NECK: Supple, trachea is midline, no adenopathy, no JVD, no carotid bruit. CHEST: Symmetric, no tenderness at palpation LUNGS: Clear to auscultation bilaterally. No wheezing or crackles. CVS: Regular rate and rhythm, S1 and S2 present, no murmurs or gallops appreciated. ABDOMEN: Soft, non-tender. Bowel sounds are normal. No abdominal abnormal pulsations. EXTREMITIES: Full ROM in all major joints, no edema, no cyanosis or clubbing. NEURO: Alert and oriented x 3. No acute neurological deficits. Speech is normal and follows commands. Psych: flat affect, positive SI, no HI, no visual or auditory hallucination, Linear thought process and content. SKIN: Dry and warm Triage Information Reviewed: Yes Vital Signs On Initial Exam: Initial Vitals Temp Pulse Resp BP Pulse Ox 98.8 F 105 16 161/100 96 02/03/18 11:23 02/03/18 11:23 02/03/18 11:23 02/03/18 11:23 02/03/18 11:23 Vital Signs Reviewed: Yes Diagnostics - Vital Signs Vital Signs Temp Pulse Resp BP Pulse Ox 02/03/18 11:23 98.8 F 105 16 161/100 96 - Laboratory Result Diagrams: 02/03/18 12:13 02/03/18 12:13 Lab Statement: Any lab studies that have been ordered have been reviewed, and results considered in the medical decision making process. Course/Dx - Course Assessment/Plan: This patient is a 22 year old M presenting to [facility] with a chief complaint of constant severe depression for the past 1.5 weeks. The patient rates the pain 0/10 in severity. Patient reports SI with plan to overdose on Hydroxyzine and alcohol, insomnia, and chronic pain secondary to lymphedema. Patient denies HI, and current auditory hallucinations. He states auditory hallucinations appear during manic states. Pt states he has been abusing his Hydroxazine (taking maximum dosage) to help him sleep at night. For the past month pt notes he has been cycling between manic and depressed states. He states 2 previous suicide attempts as well as hospitalization for mental health issues in high school. PMHx includes Bipolar I, lymphedema (a few years ago), Laproscopic hernia repair, Tendonitis bilat wrist, bilat intermittent tinnitus, and migraines. [1156] Pt is medically cleared for [facility]. [1620] Pt seen and evaluated at Psych Dept. Case discussed with Dr. Winchester who recommended admission with Dx of depression, NOS. - Differential Dx/Clinical Impression Provider Diagnosis: Depression - Physician Notifications Discussed Care Of Patient With: Dr. Winchester associate - psych Time Discussed With Above Provider: 16:20 Instructed by Provider To: Admit As Inpatient - Dr. Winchester recommends admission Discharge - Sign-Out/Discharge Documenting (check all that apply): Discharge - admit to psych - Discharge Plan Condition: Stable Disposition: ADMITTED TO [facility] Referrals: Amanda Ingram MD [Primary Care Provider] - The documentation as recorded by the Kary kline Nilda accurately reflects the service I personally performed and the decisions made by me, Peg Peterson MD.
[2018-02-03] MEDS: Albuterol HFA INHALER* 8 gm MDI INH PRN (21:21)
[2018-02-03] MEDS: carBAMazepine ER TAB(*) 200 MG PO SCH (21:23)
[2018-02-03] MEDS: hydrOXYzine HCL TAB* 10 MG PO PRN ×2 (21:30→21:54)
[2018-02-03] MEDS ORDERED: MELATONIN 2.5 MG PO SCH (22:00)
[2018-02-03] MEDS ORDERED: OLANzapine TAB* 5 MG PO SCH (22:00)
[2018-02-04] MEDS: carBAMazepine ER TAB(*) 200 MG PO SCH ×2 (08:25→21:08)
[2018-02-04] MEDS: Vitamin THERAPEUTIC TAB PO SCH (08:26)
[2018-02-04] MEDS: chlorproMAZINE TAB* 100 MG PO SCH (14:05)
--- NOTE | 2018-02-04 20:50 | HP ---
PSYCHIATRIC HISTORY AND PHYSICAL: DATE OF ADMISSION: 02/03/18 JUSTIFICATION FOR ADMISSION: The patient is in need of 24-hour supervision and care secondary to suicidal ideations with planned overdose. 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 The patient stated "my mental health has been a wreck recently and has taken a nosedive into a deep depression. I also have a lot of medical issues. My psychiatrist, Dr. Quinones, has been treating me and doesn't feel that he can keep up with it. I am having thoughts of suicide and I know what I would do. I keep a stash of hydroxyzine locked in a box and I could take that with alcohol." The patient reported to us that he had not slept in the past 24 hours. He reports having "manic depressive episodes sometimes up to 25 times a day." He reports that when he is manic, he sometimes hears voices. 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 He apparently had a laparoscopic hernia repair within the last year and is also receiving sclerotherapy to reduce the swelling and discharge. These procedures apparently occur without anesthesia. I did speak with Dr. Quinones who indicated to me that the patient had a fairly atypical history. He has apparently been hospitalized in the past for conversion disorder symptoms. He has a number of sensitivities to psychiatric medications, although he did successfully receive transcranial magnetic stimulation therapy (TMS) somewhere on [place] within the last 2 years. Since the summer, he has been on Tegretol; however, late in the fall, he started not following up with scheduled appointments and missing classes. His affect seems to shift rapidly, sometimes even within sessions. For example, he looked hypomanic 1 month ago, then manic 2 weeks ago , and 1 week ago he appeared to be depressed. When I met with the patient, he states that he is not interested in TMS given the fact that on [place] he has to drive over half an hour away from his parents' home to receive the treatments, which he is not willing to do. We did discuss possible electroconvulsive therapy, which he declined. He had numerous complaints of past sensitivities to various medications including lithium which caused tremors and polydipsia, olanzapine which he is currently taking that he feels is causing him nightmares, anxiety with Abilify, Seroquel made him a zombie. He does not recall the effects of Geodon or Risperdal. He states the clozapine therapy caused anxiety and he has never been on chlorpromazine. During our interview, he endorses numerous symptoms of depression including difficulty sleeping, anhedonia, poor energy, and poor concentration as well as psychomotor slowing. According to him, these are interspersed with very brief periods of grandiosity, hyper-focus, increased goal directed activities, and overproductiveness, racing thoughts, pressured speech, and impulsivity. It is notable that the patient appears to be somewhat attention seeking on our unit. He is somewhat theatrical and self-dramatizing with rapid and exaggerated expressions of emotion. He also demonstrates some narcissism as evidenced by statements to the effect that he was too good for his former girlfriend and that he is not homicidal because he does not care enough about other people to consider them worthy of violence. PAST PSYCHIATRIC HISTORY: The patient has been hospitalized twice at [facility] in [place] when he was 18 years old for severe depression. Past diagnoses include OCD, bipolar disorder, anxiety, depression, and ADHD. Past medications tried include paroxetine, fluoxetine, sertraline, citalopram, escitalopram, duloxetine, Pristiq, Depakote, risperidone, aripiprazole, olanzapine, paliperidone, lurasidone, quetiapine, benztropine, Adderall, topiramate, oxcarbazepine, lamotrigine, clomipramine, lorazepam, alprazolam, and clonazepam. He does have a history of self-harm in that he used to cut himself in the 8th grade for self-soothing. He has no formal history of violence towards others or suicidal attempts. SUBSTANCE ABUSE HISTORY: The patient denies any illicit drug abuse, alcohol abuse, or usage of tobacco products. FAMILY PSYCHIATRIC HISTORY: Significant for a brother with autism spectrum disorder and ADHD, 1 maternal uncle with bipolar disorder and a separate maternal uncle with depression. There is no known family history of completed suicides. PAST MEDICAL HISTORY: Significant for reports of tendinitis everywhere including his arms, wrists, hands, and jaw. He has been receiving sclerosing treatment for groin vascular malformation in [place]. He complains of bilateral tinnitus with hearing loss. He has sleep apnea with the use of CPAP. He has received treatment for Lyme disease in 2015. He was hospitalized at [facility] for left-sided neurological problems, thought to be conversion disorder in 2015. He suffers from migraines. He has a history of 1 traumatic brain injury in the past with no loss of consciousness. CURRENT MEDICATIONS: Include: 1. Carbamazepine 800 mg p.o. b.i.d. 2. Hydroxyzine 10 to 20 mg p.o. q.h.s. for anxiety. 3. Olanzapine 5 mg p.o. q. nightly. 4. Melatonin 2.5 mg q.h.s. 5. Albuterol 2 puffs inhaled every 4 hours as a p.r.n. for wheezing. SOCIAL HISTORY: The patient was born and raised on [place] to intact family and his parents are still together and are fully employed. He indicates that his younger brother who is 19, was recently kicked out of college and returned to live with his parents. He has no other siblings. 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 He lives on campus. Identifies as heterosexual. He recently had a relationship for 3.5 years with a fellow student that ended in October 2017. Since then, he has been trying to date but unsuccessfully. He has no formal legal history. He has never been in the . He is reliant on his parents for financial support. REVIEW OF SYSTEMS: The patient is complaining of right-sided inguinal pain. Other than this, he denies double vision or headache. He denies sore throat, cough, chest pain, or difficulty breathing. He denies abdominal pain, nausea, vomiting, diarrhea, or constipation. He denies rashes or recent seizures. PHYSICAL EXAMINATION VITALS: Blood pressure 106/65, heart rate 50, respiratory rate 15, temperature 97.1 degrees Fahrenheit, and oxygen saturations are 99% on room air. HEENT: Head is normocephalic, atraumatic. NECK: Supple. CHEST: Clear to auscultation bilaterally. CARDIAC: Reveals normal heart sounds. ABDOMEN: Soft and nontender. He is wearing a compression belt around his midsection. MUSCULOSKELETAL: Exam reveals full range of motion in all 4 extremities. NEUROLOGICAL: He is grossly intact with no focal deficits. LABORATORY DATA: CBC is within normal limits. His complete metabolic panel reveals a slightly elevated glucose at 128. Metabolic studies demonstrate a hemoglobin A1c of 4.8. Triglycerides 109, cholesterol 170, LDL cholesterol 111 , HDL cholesterol 37.3. TSH is normal at 1.82. Urinalysis is within normal limits as is his urine drug screen, which is negative for all substances tested including alcohol. MENTAL STATUS EXAM: The patient is a young white male with somewhat frizzy, disheveled dark hair with thick rimmed spectacles. He is wearing a black kannan- shirt that states "got music?" He is quite socially active on our unit, is calm , cooperative, able to provide a history, although he often lacks detail in his responses. Speech initially is somewhat pressured, but tends to mellow and slow down within the examination. Mood appears to vacillate between hyperthymic and hypothymic states. His affect showed some lability. Thought process is linear, goal directed but with some diffusion. Thought content is significant for his desire to come in to the hospital for several days to alter his medications and receive talk therapy. He is currently denying suicidal ideations here on the unit, but does not feel safe going home. He denies homicidal ideations. He denies auditory or visual hallucinations currently. There is no evidence of paranoid thinking. Insight and judgment is fair given his willingness to seek treatment on a voluntary basis. Cognitively, he is awake and alert with what would appear to be an average range intellect. DIAGNOSES: As follows: Neversink I: Unspecified mood disorder, rule out cyclothymia versus rapid-cycling bipolar depression. 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 Neversink III: Bilateral tendinitis, history of right-sided groin vascular malformation, tinnitus with mild hearing loss, sleep apnea, history of Lyme disease, history of left-sided neurological problems, history of traumatic brain injury with no loss of consciousness, history of migraine headache, history of asthma. Neversink IV: Moderate to severe primary support and academic stressors. Neversink V: At this time is 35. IMPRESSION: The patient is a 22-year-old single white male, undergraduate music student at [employer] with a putative history of bipolar disorder who was brought in by a friend due to several weeks of severe mood instability culminating in anxiety and depression as well as suicidal ideations with plans to overdose on a large stockpile of sequestered hydroxyzine. I have spoken with the patient as well as his outpatient psychiatrist. Diagnostically, his mood instability is difficult to characterize given the extreme fluctuations between hypomanic, manic, and depressive states. 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 With that being said, the patient is here on a voluntary basis and appears to want help. He is adherent with milieu activities thus far. PLAN: The patient is admitted to the adult behavioral health unit where he is placed on q.15-minute checks for his own safety. We will continue carbamazepine therapy, but check a carbamazepine level in the morning to see if he is therapeutic. He complains of nightmares with olanzapine and we can discontinue this in favor of a trial of chlorpromazine 100 mg p.o. daily. There seems to be consensus on the part of providers at [facility] that he would benefit from a medical leave of absence. We will also be ordering psychological testing to further tease out an appropriate diagnosis. The patient has had recent head imaging for which we will try to find the results. We will leave his p.r.n.'s in place of hydroxyzine and he is certainly encouraged to avail himself of all milieu activities including individual and group psychotherapies. The patient is ruling out TMS at this time, but perhaps we could contact his family in order to receive further collateral information and rally social support. If they are willing and able to provide him transportation, we can try to refer him back to [facility] in [place] if he is willing to agree to that. [id number]/[facility] #: [id number] RAUL
[2018-02-04] MEDS ORDERED: Melatonin (NF) ** ENTER STRENGTH IN LABEL DIRECTIONS PO SCH (21:00)
[2018-02-04] MEDS: Albuterol HFA INHALER* 8 gm MDI INH PRN (22:05)
[2018-02-04] MEDS: hydrOXYzine HCL TAB* 10 MG PO PRN (22:05)
[2018-02-05] MEDS: carBAMazepine ER TAB(*) 200 MG PO SCH ×2 (07:26→20:53)
[2018-02-05] MEDS: Albuterol HFA INHALER* 8 gm MDI INH PRN ×2 (07:26→20:55)
[2018-02-05] MEDS: Vitamin THERAPEUTIC TAB PO SCH (07:26)
[2018-02-05] MEDS: chlorproMAZINE TAB* 100 MG PO SCH (07:26)
[2018-02-05] MEDS: Ibuprofen TAB* 600 MG PO PRN (14:03)
--- NOTE | 2018-02-05 14:10 | PN ---
Subjective - Subjective Date of Service: 02/05/18 Service Type: 19502 Hosp care 25 min moderate complexity Subjective: Bautista complains of sedation and nightmares from the chlorpromazine. "It made me dream of big, giant, hairy spiders, and I hate spiders even more than being in the hospital." He denies SI today has been active and quite social in groups. He talks about his interest in music composition and describes in some detail a recent recital in which his tunes were played by a 93-piece student orchestra. 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 He recalls being on risperidone in the past but cannot recall what reaction, whether therapeutic or untoward, he may have had on this. Objective - Appearance Appearance: Obese Dysmorphic Features: No Hygiene: Normal Grooming: Fairly Well Kept - Behavior Psychomotor Activities: Normal Exhibits Abnormal Movement: No - Attitude and Relatedness Attitude and Relatedness: Cooperative Eye Contact: Good - Speech Quality: Unpressured Latencies: Normal Quantity: Appropriate - Mood Patient's Decription of Mood: "Good" - Affect Observed Affect: Fair Affect Consistent with: Euthymia - Thought Process Patient's Thought Process: Coherent Thought Content: No Passive Wish, No Suicidal Planning, No Homicidal Ideation, No Paranoid Ideation - Sensorium Experiencing Hallucinations: No, Sensorium is Clear Type of Hallucinations: Visual: No, Auditory: No, Command: No - Level of Consciousness Level of Consciousness: Alert Orientation: Yes Intact, Yes Orientated to Time, Yes Orientated to Place, Yes Orientated to Person - Impulse Control Impulse Control: Tenuous - Insight and Judgement Insight and Judgement: Fair - Group Participation Particating in Group Activities: Yes - Medication Management Medication Management Adherence: Yes Assessment - Assessment Merits Inpatient Hospitalization: For Immediate Safety, For Stabilization Inpatient DSM-V Dx: F31.9 Clinical Impression: 22 y.o. 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 Plan - Plan Treatment Plan: Name: BAUTISTA SHIELDS Birthdate: 1995 [id number] The patient's carbamazepine level is slightly supratherapeutic at 13.8, which is fine given his active mood instability. He is not tolerating the switch from olanzapine to chlorpromazine. Will discontinue chlorpromazine in favor of a trial of low dose risperidone. Await MMPI results. staff is working on referral to a new outpatient psychotherapist, as he is unwilling to continue with his most recent provider in the community. The patient is declining medical withdrawal from [facility] in favor of dropping 3 problematic classes and finishing the ester. His medical issues are sub-acute. Will target d/c back to campus on Saturday (02/07). F/U with Dr. Quinones. Continued Medication Management: Different Medication Medications: Current Medications Acetaminophen (Tylenol Tab*) 650 mg PO Q4H PRN PRN Reason: PAIN or TEMP > 101 F Al Hydrox/Mg Hydrox/Simethicone (Maalox Plus*) 30 ml PO Q4H PRN PRN Reason: INDIGESTION Albuterol (Ventolin Hfa Inhaler*) 2 puff INH Q4H PRN PRN Reason: SHORTNESS OF BREATH Last Admin: 02/05/18 07:26 Dose: 2 puff Carbamazepine (Tegretol Xr Tab(*)) 800 mg PO BID [facility] Last Admin: 02/05/18 07:26 Dose: 800 mg Chlorpromazine HCl (Thorazine Tab*) 100 mg PO DAILY [facility] Last Admin: 02/05/18 07:26 Dose: 100 mg Hydroxyzine HCl (Atarax Tab*) 10 mg PO 2100 PRN PRN Reason: .ANXIETY/INSOMNIA Last Admin: 02/04/18 22:05 Dose: 10 mg Ibuprofen (Motrin Tab*) 600 mg PO Q6H PRN PRN Reason: PAIN Melatonin (Melatonin (Nf)) 3 mg PO BEDTIME [facility] PRN Reason: Protocol Multivitamins (Theragran Tab*) 1 tab PO DAILY [facility] Last Admin: 02/05/18 07:26 Dose: 1 tab - Discharge Plan Discharge Plan: Inpatient Hospitalization Lab Results - Lab Results Lab Results: 02/04/18 02/04/1802/05/18 06:49 06:49 07:01 Hemoglobin A1c 4.8 Triglycerides 109 Cholesterol 170 LDL Cholesterol 111 HDL Cholesterol 37.3 Carbamazepine 13.8 H
[2018-02-05] MEDS: CMC:Melatonin (NF) 3 MG TAB PO SCH (20:53)
[2018-02-05] MEDS: risperiDONE TAB* 1 MG PO SCH (20:53)
[2018-02-05] MEDS: hydrOXYzine HCL TAB* 10 MG PO PRN (20:56)
[2018-02-06] MEDS: carBAMazepine ER TAB(*) 200 MG PO SCH ×2 (08:15→20:15)
[2018-02-06] MEDS: Vitamin THERAPEUTIC TAB PO SCH (08:15)
[2018-02-06] MEDS: Ibuprofen TAB* 600 MG PO PRN (08:16)
--- NOTE | 2018-02-06 11:25 | PN ---
Subjective - Subjective Date of Service: 02/06/18 Service Type: 80938 Hosp care 15 min low complexity Subjective: Eyad continues to deny SI. He feels safe to be discharged from the unit and expresses his wish that this could be today instead of tomorrow. "I'm really better and I think the enclosed space here is just getting to me." He is tolerating risperidone therapy well and voices no untoward effects from any of his medications, including carbamazepine, which is technically supratherapeutic. "I talked to my Dad this morning at work. He's totally fine with me getting out of here tomorrow." Eyad declines release to contact his father, stating that he likes being responsible for his own health. "My parents know that I'm good at monitoring my own safety. He denies urges to overutilize or overdose on hydroxyzine. He is agreeable with following up at [facility] with Dr. Quinones and seeing the new outpatient therapist we are referring him to. Objective - Appearance Appearance: Obese Dysmorphic Features: No Hygiene: Normal Grooming: Fairly Well Kept - Behavior Psychomotor Activities: Normal Exhibits Abnormal Movement: No - Attitude and Relatedness Attitude and Relatedness: Cooperative Eye Contact: Good - Speech Quality: Unpressured Latencies: Normal Quantity: Appropriate - Mood Patient's Decription of Mood: "Good" - Affect Observed Affect: Fair Affect Consistent with: Euthymia - Thought Process Patient's Thought Process: Coherent Thought Content: No Passive Wish, No Suicidal Planning, No Homicidal Ideation, No Paranoid Ideation - Sensorium Experiencing Hallucinations: No, Sensorium is Clear Type of Hallucinations: Visual: No, Auditory: No, Command: No - Level of Consciousness Level of Consciousness: Alert Orientation: Yes Intact, Yes Orientated to Time, Yes Orientated to Place, Yes Orientated to Person - Impulse Control Impulse Control: Intact - Insight and Judgement Insight and Judgement: Good - Group Participation Particating in Group Activities: Yes - Medication Management Medication Management Adherence: Yes Assessment - Assessment Merits Inpatient Hospitalization: Consolidate Improvements, Pending Safe DC Plan Inpatient DSM-V Dx: F31.9 Clinical Impression: 22 y.o. 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 Plan - Plan Treatment Plan: Name: ARABELLA SHIELDS Birthdate: 1995 [id number] The patient's carbamazepine level is slightly supratherapeutic at 13.8, which is fine given his active mood instability. He is tolerating the switch from olanzapine to chlorpromazine to risperidone well and we will leave him on risperidone 1mg PO qhs. Await MMPI results. staff is working on referral to a new outpatient psychotherapist, as he is unwilling to continue with his most recent provider in the community. The patient is declining medical withdrawal from [facility] in favor of dropping 3 problematic classes and finishing the ester. His medical issues are sub-acute. Will target d/c back to campus on Saturday (02/07). F/U with Dr. Quinones. Continued Medication Management: Different Medication Medications: Current Medications Acetaminophen (Tylenol Tab*) 650 mg PO Q4H PRN PRN Reason: PAIN or TEMP > 101 F Al Hydrox/Mg Hydrox/Simethicone (Maalox Plus*) 30 ml PO Q4H PRN PRN Reason: INDIGESTION Albuterol (Ventolin Hfa Inhaler*) 2 puff INH Q4H PRN PRN Reason: SHORTNESS OF BREATH Last Admin: 02/05/18 20:55 Dose: 2 puff Carbamazepine (Tegretol Xr Tab(*)) 800 mg PO BID [facility] Last Admin: 02/06/18 08:15 Dose: 800 mg Hydroxyzine HCl (Atarax Tab*) 10 mg PO 2100 PRN PRN Reason: .ANXIETY/INSOMNIA Last Admin: 02/05/18 20:56 Dose: 10 mg Ibuprofen (Motrin Tab*) 600 mg PO Q6H PRN PRN Reason: PAIN Last Admin: 02/06/18 08:16 Dose: 600 mg Melatonin (Melatonin (Nf)) 3 mg PO BEDTIME [facility] PRN Reason: Protocol Last Admin: 02/05/18 20:53 Dose: 3 mg Multivitamins (Theragran Tab*) 1 tab PO DAILY [facility] Last Admin: 02/06/18 08:15 Dose: 1 tab Risperidone (Risperdal*) 1 mg PO BEDTIME [facility] Last Admin: 02/05/18 20:53 Dose: 1 mg - Discharge Plan Discharge Plan: Outpatient Follow Up Outpatient Program: [facility] Lab Results - Lab Results Lab Results: 02/04/18 02/04/18 02/05/18 06:49 06:49 07:01 Hemoglobin A1c 4.8 Triglycerides 109 Cholesterol 170 LDL Cholesterol 111 HDL Cholesterol 37.3 Carbamazepine 13.8 H
[2018-02-06] MEDS: Albuterol HFA INHALER* 8 gm MDI INH PRN (15:22)
[2018-02-06] MEDS: CMC:Melatonin (NF) 3 MG TAB PO SCH (20:13)
[2018-02-06] MEDS: risperiDONE TAB* 1 MG PO SCH (20:13)
[2018-02-06] MEDS: hydrOXYzine HCL TAB* 10 MG PO PRN (20:14)
[2018-02-07] MEDS: Ibuprofen TAB* 600 MG PO PRN (08:22)
[2018-02-07] MEDS: Vitamin THERAPEUTIC TAB PO SCH (08:22)
[2018-02-07] MEDS: carBAMazepine ER TAB(*) 200 MG PO SCH (08:22)
[2018-02-07 08:35] VITALS: BP 127/77
--- NOTE | 2018-02-07 13:27 | PN ---
[facility]: Group Therapy Note - Service Type Service Type: 95541 Group Psychotherapy - Cognitive Behavioral Group Therapy ( CBT):Patient was attentive and participatory in CBT programming this morning, and remained in good behavioral control. Patient expressed positive insights regarding relevant treatment interventions and goals.
--- NOTE | 2018-02-08 00:31 | DS ---
DISCHARGE SUMMARY: DATE OF ADMISSION: 02/03/18 DATE OF DISCHARGE: 02/07/18 DISCHARGE DIAGNOSES: Are as follows: [place] I: Bipolar disorder, type 1, most recent episode, depressed, severe with rapid cycling. [place] II: Histrionic personality disorder, narcissistic personality trait. [place] III: Bilateral tendinitis, history of right-sided groin vascular malformation, tinnitus with mild hearing loss, sleep apnea, history of Lyme disease, history of left-sided neurological problems, history of traumatic brain injury with no loss of consciousness, history of migraine headache, history of asthma. [place] IV: Moderate to severe primary support and academic stressors. [place] V: At the time of admission was 35 and at the time of discharge is 60. CONDITION AT THE TIME OF DISCHARGE: Stable. The patient is calm, cooperative. 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 He has dropped several courses that were the cause of academic stress and he feels that he is a better position to finish the remainder of his course work in a satisfactory manner. Furthermore, we have been in touch with his father who indicates his agreement with the discharge plan. The patient is willing to follow up with his outpatient psychiatrist, Dr. Herbie Quinones, who he has an excellent relationship with. In addition, he has been agreeable to an outpatient referral to a new psychotherapist here in the community, a psychologist name Dr. Kenny. The patient has been safe on all checks. He has denied suicidal ideations for several days now and he feels like he would be better served receiving treatment in a less restrictive setting. We see no legal justification for keeping him on the inpatient unit for any further duration of time. MENTAL STATUS EXAMINATION AT THE TIME OF DISCHARGE: The patient is a young white male with somewhat frizzy, disheveled dark hair with thick rimmed spectacles. He is wearing a black T-shirt as well as black braces on his bilateral wrists. He is quite socially active on the unit, calm, cooperative, able to provide history, although he often lacks detail in his responses. Speech displays a normal rate, tone, and volume. Mood is currently euthymic with a full affect. He is far less labile than at the time of admission. Thought process is linear and goal directed with some cognitive diffusion. Thought content is significant for his desire to be discharged from the hospital. He is denying suicidal or homicidal ideations. He denies auditory or visual hallucinations. There is no evidence of psychotic thinking. Insight and judgment are fair given his willingness to follow up with outpatient care. Cognitively, he is awake and alert with what would appear to be an average range intellect. LABORATORY DATA: The patient's metabolic studies were taken on 02/04/18. At that time, his hemoglobin A1c was 4.8%, triglycerides 109, cholesterol 170, LDL cholesterol 111, HDL cholesterol 37.3. DISCHARGE INSTRUCTIONS: To the patient are as follows: A. Medications: The patient is on: 1. Risperidone 1 mg p.o. q. daily. 2. A multivitamin 1 tab p.o. daily. 3. Melatonin 3 mg p.o. q.h.s. 4. Ibuprofen 600 mg every 6 hours as needed for pain. 5. Hydroxyzine 10 mg q. bedtime p.r.n. for anxiety. 6. Tegretol XR 800 mg p.o. b.i.d. 7. Albuterol 2 puffs inhaled every 4 hours as needed for wheezing. B. Diet is regular. C. Activities: As tolerated. The patient is a nonsmoker. There are no laboratory or diagnostic studies pending at the time of discharge. D. Followup care: The patient will be seen this afternoon at the [facility], which is in the campus of [facility]. There, he will see his psychiatrist, Dr. Herbie Quinones for psychiatric followup. In addition, he will be seeing Stas Kenny, PhD, within 4 to 7 days to initiate psychotherapy. Follow up with his primary care provider will be with Dr. Amanda Ingram as needed. E. Substance abuse followup is nonapplicable. 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 The patient stated "my mental health has been a wreck recently and has taken a nosedive into a deep depression. I also have a lot of medical issues. I am having thoughts of suicide and I know what I would do. I have a stash of hydroxyzine locked in a box and I could take an overdose of that with alcohol." The patient reported to us that he has not slept in the past 24 hours. He has been having "manic depressive episodes sometimes up to 25 times a day." He went on to report that when he is manic, he sometimes hears voices. 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 He apparently had a laparoscopic hernia repair within the last year and is also receiving sclerotherapy to reduce the swelling and discharge in his inguinal area. These procedures apparently occur without anesthesia. I did speak with Dr. Herbie Quinones who is his psychiatrist at [facility] who indicated to me that the patient has had a fairly atypical history. He has been hospitalized in the past for conversion disorder symptoms and has a number of sensitivities to psychiatric medications. He apparently received successful transcranial magnetic stimulation therapy sometime, somewhere on [place] within the last 2 years and since the summer, he has been on carbamazepine. In the late fall, apparently he started doing poorly, not following up with scheduled appointments and actually missing classes. His affect is unusual and that it shifts rapidly, sometimes even within sessions, for example, to Dr. Quinones the patient appeared hypomanic 1 month ago, then manic 2 weeks ago, and then 1 week prior to admission he appeared to be depressed. When I met with the patient, he stated that he was not interested in any further TMS given the fact that on [place], he has to drive over half an hour away from his parents' home to receive these treatments, which he is not currently willing to do. We did discuss possible electroconvulsive therapy, which he declined. He had numerous complaints of past sensitivities to various medications including lithium, which caused tremors and polydipsia, olanzapine, which he is currently taking, which he feels causes nightmares. He experienced anxiety with Abilify and stated that Seroquel made him feel like a zombie. He does not recall the effects of ziprasidone or risperidone. He states the clozapine therapy caused anxiety and he has never been on chlorpromazine. During our interview, he endorsed numerous symptoms of depression including difficulty sleeping, anhedonia, poor energy, poor concentration as well as psychomotor slowing. According to him, these are interspersed with very brief periods of grandiosity, hyperfocus, increased goal directed activities, overproductiveness, racing thoughts, pressured speech, and impulsivity. It is notable that the patient appears to be somewhat attention seeking on our unit. He is somewhat theatrical and self-dramatizing with rapid and exaggerated expressions of emotion. He also demonstrates some narcissism as evidenced by statement to the effect that he was too good for his former girlfriend and that he is not homicidal because he does not care enough about other people to consider them worthy of violence. B: Psychiatric treatment rendered: The patient was admitted to the adult behavioral health unit and placed on q. 15 minute checks for his own safety. We placed him on a trial of ibuprofen to manage his pain issues and he was allowed to keep his bilateral wrist braces as well as his constriction belt, which he uses for his inguinal issues. The patient participated fully in milieu acclivities, was quite social with peers. Again, tended to be attention seeking and uncomfortable in situations where he was not the center of focus. With that being said, he was quite cooperative and fairly easy to work with throughout his stay. We kept him on carbamazepine therapy at the outpatient dose of 800 mg b.i.d. His carbamazepine level came back slightly supratherapeutic at 13.8 on 05 February. We did not lower his dose due to the fact that he was having active mood dysregulation and due to the fact that he seems to tolerate this medication quite well. I looked at his CBC and complete metabolic panel and they had no notable abnormalities. He showed no evidence of tremor. Initially, we discontinued olanzapine therapy because he felt it was giving him nightmares. We replaced this with low dose chlorpromazine at 100 mg per day, which he stated also gave him nightmares. This was discontinued after only 2 doses and replaced with risperidone 1 mg p.o. q.h.s., which the patient tolerated quite well. As we engaged with him, we felt that his affect became more consistent. He seemed to benefit from a supportive psychotherapeutic stance. The patient has a good relationship with Dr. Quinones and is eager to continue working with that clinician at [facility]; however, it came to our attention that he had discontinued working with his outpatient psychotherapist. For this reason, we referred him to the clinician, Stas Kenny, PhD and Bautista is quite agreeable to following through with that treatment. I did have brief contact with the patient's father who indicated that he was supportive of the discharge plan. The patient's suicidal ideations resolved completely and he felt that he was safe for discharge. His affect improved to the point that we feel that he can safely receive treatment in a less restrictive setting. Diagnostically, we continued to believe that much of his affective problems tend to be characterological, although I do believe that he has honest to goodness bipolar dysfunction. The patient's risperidone is at a low dose and this can easily be titrated in the future if symptoms warrant. We enjoyed working with Mr. Melendez and wish him the best for safe and healthy future. [id number]/CPS #: [id number] MTDD
== END 2018-02-07 12:55 | disposition home or self-care (01) | DRG 753 ==
LOC: ED 11:20 → BSU 18:19
PROVIDERS: ADMIT Psychiatry & Neurology Psychiatry; ATTEND Psychiatry & Neurology Psychiatry
PROC: 5A09357 Assistance with Respiratory Ventilation, Less than 24 Consecutive Hours, Continuous Positive Airway Pressure (ICD-10-PCS; principal; 2018-02-03)
PROC: GZHZZZZ Group Psychotherapy (ICD-10-PCS; 2018-02-07)
DX: F31.4 Bipolar disorder, current episode depressed, severe, without psychotic features (principal); R45.851 Suicidal ideations; G43.909 Migraine, unspecified, not intractable, without status migrainosus; J45.909 Unspecified asthma, uncomplicated; F90.9 Attention-deficit hyperactivity disorder, unspecified type; F41.0 Panic disorder [episodic paroxysmal anxiety]; F42.9 Obsessive-compulsive disorder, unspecified; G47.30 Sleep apnea, unspecified; F60.4 Histrionic personality disorder; F39 Unspecified mood [affective] disorder; H93.19 Tinnitus, unspecified ear; H91.90 Unspecified hearing loss, unspecified ear; Q27.9 Congenital malformation of peripheral vascular system, unspecified; Z91.040 Latex allergy status; Z91.5 Personal history of self-harm; Z72.89 Other problems related to lifestyle; Z81.8 Family history of other mental and behavioral disorders; Z87.820 Personal history of traumatic brain injury
CPT/HCPCS: 36415; 80053; 80061; 80156; 80307; 80320; 80329; 81003; 81015; 83036; 84443; 85025; 87086; 90853; 99222; 99231; 99232; 99238; 99284; A9270-GY; G0480

== ENCOUNTER 2018-02-28 21:54 | Emergency (ER) | payer OTHER ==
[2018-02-28] MEDS ORDERED: NS 0.9% 1000 ML* 1,000 ML IV ONE (22:54)
[2018-02-28 23:13] LABS: Urine Appearance Clear; Urine Blood Negative (Negative); Urine Color Colorless; Urine Ketones Negative (Negative); Urine Protein Negative (Negative); Urine Specific Gravity 1.002 (1.010-1.030); Urine Urobilinogen Negative (Negative)
[2018-02-28 23:15] LABS: ABS Basophils 0 10^3/ul (0-0.2); ABS Eosinophils 0.2 10^3/ul (0-0.6); ABS Lymphocytes 1.7 10^3/ul (1.0-4.8); ABS Monocytes 0.7 10^3/ul (0-0.8); ABS Neutrophils 4.1 10^3/ul (1.5-7.7); ABS Nucleated RBC 0 10^3/ul; Eosinophil % 2.3 % (0-6); Hematocrit 45 % (42-52); Hemoglobin 15.7 g/dl (14.0-18.0); Lymphocyte % 25.5 % (25-47); Mean Corpuscular HGB Conc 35 g/dl (31-36); Mean Corpuscular Hemoglobin 31 pg (27-31); Mean Corpuscular Volume 90 fL (80-94); Nucleated Red Blood Cells % 0.1; Platelet Count 194 10^3/ul (150-450); Red Blood Count 5.05 10^6/ul (4.0-5.4); Red Cell Distribution Width 13 % (10.5-15); White Blood Count 6.6 10^3/ul (3.5-10.8)
[2018-02-28 23:22] LABS: INR 0.98 (0.77-1.02)
[2018-02-28 23:31] LABS: EGFR Non-African American 95.6 (>60)
[2018-03-01 02:03] VITALS: BP 129/82
--- NOTE | 2018-03-01 08:27 | RAD ---
Indication: LEFT side numbness, lightheaded, headache. Comparison: October 08, 2017 MRI. Technique: Noncontrast CT vertex of skull through foramen magnum. Report: The sulci, ventricles, and basal cisterns are normal for age. Hanna matter white matter differentiation is preserved without evidence for edema. No intra or extra axial hemorrhage, mass, or fluid collection detected. Unremarkable visualized orbital contents. Unremarkable calvarium and skull base. Unremarkable scalp. The visualized paranasal sinuses and mastoid air spaces are clear. IMPRESSION: Negative unenhanced head CT.
--- NOTE | 2018-03-01 08:55 | ED ---
Bull Hoover Tiffany, scribed for Robyn Almanza MD on 02/28/18 at 2234 . Complex/Multi-Sys Presentation - HPI Summary HPI Summary: The patient is a 23 year old male [facility] complains of multiple neuro complaints including left facial numbness, headache, "twitchiness" and left sided weakness since 02/24/18. The patient rates the pain 5/10 in severity. Symptoms aggravated by nothing. Symptoms alleviated by nothing. Reports blurry vision. Denies neck pain. Left side of body began feeling twitchy and weak on 02/19/18. On 02/21/18, onset of nausea but no vomiting. On 02/22/18, onset of "small sharp pain behind left eye." On 02/23/18, onset of dizziness, severity depends on what he is doing. Pt states that he was seen by Dr. Kristine Leon (PCP at [facility]) on 02/27/18, who knows pt well, and called in with further history regarding pt. She was concerned about twitchiness , left sided weakness and left facial numbness so she advised him to report to ED. 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 Was bedridden from March 2017-Aug 2017, which left him able to hold up left leg better than right leg. Patient is wearing splint on right wrist upon evaluation, states it is for tendonitis. Pt is followed by his psychiatrist Dr. Quinones. - History Of Current Complaint Chief Complaint: EDGeneral Time Seen by Provider: 02/28/18 22:22 Hx Obtained From: Patient, Other: - Dr. Leon from [facility] Onset/Duration: Gradual Onset, Lasting Weeks - 2 weeks, Still Present, Worse Since - yesterday Timing: Constant Severity Currently: Moderate Severity Initially: Moderate Location: Pain At: - headache and behind his eye Character: Sharp Aggravating Factor(s): Nothing Alleviating Factor(s): Nothing Associated Signs And Symptoms: Positive: Headache, Other - facial numbness, twitchiness, left sided weakness. Negative: Vomiting Related History: Similar Episode/Diagnosed As: - conversion disorder, 2015. [facility] records of this admission reviewed. Per Dr. Leon, his neuro symptoms worsen when his mental health issues arise. - Allergies/Home Medications Allergies/Adverse Reactions: Allergies Allergy/AdvReac Type Severity Reaction Status Date / Time latex Allergy Mild Itching Verified 02/28/18 22:02 Home Medications: Home Medications Acetaminophen TAB* [Tylenol TAB*] 650 mg PO Q4H PRN 02/28/18 [History Confirmed 02/28/18] PMH/Surg Hx/FS Hx/Imm Hx Previously Healthy: No Endocrine/Hematology History: Denies: Hx Diabetes Cardiovascular History: Denies: Hx Hypertension, Hx Pacemaker/ICD Respiratory History: Reports: Hx Asthma - very mild, Other Respiratory Problems/ Disorders - sleep apnea GI History: Reports: Hx Obstructive Bowel - 2 years ago, Other GI Disorders - hernia, unsure what kind -- right groin region History: Denies: Hx Dialysis, Hx Renal Disease Musculoskeletal History: Reports: Hx Tendonitis - bilat wrist, Other Musculoskeletal History - growth plate in ankle fx in 4th grade; Inguinal Lymphedema on right side Sensory History: Reports: Hx Contacts or Glasses Denies: Hx Hearing Aid Opthamlomology History: Reports: Hx Contacts or Glasses Neurological History: Reports: Hx Headaches, Hx Migraine Denies: Hx Seizures Psychiatric History: Reports: Hx Anxiety, Hx Attention Deficit Hyperactivity Disorder, Hx Depression, Hx Panic Disorder - ANXIETY DISORDER, Hx Inpatient Treatment, Hx Community Mental Health Tx, Hx Bipolar Disorder, Hx Suicide Attempt, Other Psychiatric Issues/Disorders - OCD, conversion disorder Denies: Hx Eating Disorder, Hx of Violent Episodes Against Others - Surgical History Surgery Procedure, Year, and Place: Dental surgeries when he was young. hernia repair in 4th grade and 10th grade. HERNIA REPAIR 11/2015 WITH MESH Hx Anesthesia Reactions: No Infectious Disease History: No Infectious Disease History: Denies: Traveled Outside the [place] in Last 30 Days - Family History Known Family History: Positive: Cardiac Disease - Grandfather had heart attack at 40, father had triple bypass Negative: Other - hernia, grandfather had stroke at 87 y/o - Social History Occupation: Student Alcohol Use: Rare Hx Substance Use: No Substance Use Type: Reports: None Hx Tobacco Use: No Smoking Status (MU): Never Smoked Tobacco Amount Used/How Often: pt has used no tobacco in last 30 days Review of Systems Constitutional: Negative Positive: Blurred Vision, Other - "small sharp pain behind left eye" ENT: Negative Cardiovascular: Negative Respiratory: Negative Positive: Nausea. Negative: Vomiting Musculoskeletal: Negative - Neck pain Neurological: Other - Dizziness, twitchiness of left side of body Positive: Weakness - Left side of body Psychological: Normal All Other Systems Reviewed And Are Negative: Yes Physical Exam - Summary Physical Exam Summary: Appearance:well-appearing,no pain distress, Well-nourished, able to give complete hx, good eye contact. speech clear Skin: Warm, color reflects adequate perfusion Head: Normal Head/Face inspection, atraumatic. Eyes: Conjunctiva clear, PERRL EOMI, no nystagmus, fundi discs sharp and flat ENT: Normal inspection, left TM dull with air fluid level, pharynx clear Neck: Supple, no nodes, no JVD., no bruits, no spinal tenderness, full ROM, Respiratory: Lungs clear, Normal breath sounds, no respiratory distress Cardio: RRR, No murmur, pulses normal, brisk capillary refill Abdomen: soft, nontender, wearing a belt at his right inguinal area to control lymphedema, not removed. Bowel sounds: present Musculoskeletal: Strength Intact/ ROM intact. No calf tenderness. No edema. Wearing a splint on right wrist, when removed has full ROM right wrist Psychological: Normal, good eye contact, cooperative Neuro: Alert O x 3, CN II-XII intact, no nystagmus, Motor 5/5, Sensation intact , no tremors, muscle tone normal, no focal deficit, normal heel to vivar, able to walk unassisted. Reflexes 2+ symmetric Triage Information Reviewed: Yes Vital Signs On Initial Exam: Initial Vitals Temp Pulse Resp BP Pulse Ox 98.5 F 90 16 138/72 97 02/28/18 21:55 02/28/18 21:55 02/28/18 21:55 02/28/18 21:55 02/28/18 21:55 Vital Signs Reviewed: Yes Diagnostics - Vital Signs Vital Signs Temp Pulse Resp BP Pulse Ox 02/28/18 22:12 92 131/88 93 02/28/18 21:55 98.5 F 90 16 138/72 97 - Laboratory Lab Results: Lab Results 02/28/18 02/28/18 02/28/18 Range/Units 23:03 23:03 23:05 WBC (3.5-10.8) 10^3/ul RBC (4.0-5.4) 10^6/ul Hgb (14.0-18.0) g/dl Hct (42-52) % MCV (80-94) fL MCH (27-31) pg MCHC (31-36) g/dl RDW (10.5-15) % Plt Count (150-450) 10^3/ul MPV (7.4-10.4) um3 Neut % (Auto) (38-83) % Lymph % (Auto) (25-47) % Chester % (Auto) (0-7) % Eos % (Auto) (0-6) % Baso % (Auto) (0-2) % Absolute Neuts (auto) (1.5-7.7) 10^3/ul Absolute Lymphs (auto) (1.0-4.8) 10^3/ul Absolute Monos (auto) (0-0.8) 10^3/ul Absolute Eos (auto) (0-0.6) 10^3/ul Absolute Basos (auto) (0-0.2) 10^3/ul Absolute Nucleated RBC 10^3/ul Nucleated RBC % INR (Anticoag Therapy) 0.98 (0.77-1.02) APTT 30.7 (26.0-36.3) seconds Sodium (139-145) mmol/L Potassium (3.5-5.0) mmol/L Chloride (101-111) mmol/L Carbon Dioxide (22-32) mmol/L Anion Gap (2-11) mmol/L BUN (6-24) mg/dL Creatinine (0.67-1.17) mg/dL Est GFR ( Amer) (>60) Est GFR (Non-Af Amer) (>60) BUN/Creatinine Ratio (8-20) Glucose (70-100) mg/dL Lactic Acid (0.5-2.0) mmol/L Calcium (8.6-10.3) mg/dL Total Bilirubin (0.2-1.0) mg/dL AST (13-39) U/L ALT (7-52) U/L Alkaline Phosphatase (34-104) U/L Troponin I (<0.04) ng/mL Total Protein (6.4-8.9) g/dL Albumin (3.2-5.2) g/dL Globulin (2-4) g/dL Albumin/Globulin Ratio (1-3) Urine Color Colorless Urine Appearance Clear Urine pH 7.0 (5-9) Ur Specific Noble 1.002 L (1.010-1.030) Urine Protein Negative (Negative) Urine Ketones Negative (Negative) Urine Blood Negative (Negative) Urine Nitrate Negative (Negative) Urine Bilirubin Negative (Negative) Urine Urobilinogen Negative (Negative) Ur Leukocyte Esterase Negative (Negative) Urine Glucose Negative (Negative) Urine Opiates Screen None detected (None Detect) Ur Barbiturates Screen None detected (None Detect) Carbamazepine (4.0-12.0) mcg/mL Ur Phencyclidine Scrn None detected (None Detect) Ur Amphetamines Screen None detected (None Detect) U Benzodiazepines Scrn None detected (None Detect) Urine Cocaine Screen None detected (None Detect) U Cannabinoids Screen None detected (None Detect) Serum Alcohol (<10) mg/dL 02/28/18 02/28/18 02/28/18 Range/Units 23:05 23:05 23:05 WBC 6.6 (3.5-10.8) 10^3/ul RBC 5.05 (4.0-5.4) 10^6/ul Hgb 15.7 (14.0-18.0) g/dl Hct 45 (42-52) % MCV 90 (80-94) fL MCH 31 (27-31) pg MCHC 35 (31-36) g/dl RDW 13 (10.5-15) % Plt Count 194 (150-450) 10^3/ul MPV 8.0 (7.4-10.4) um3 Neut % (Auto) 61.2 (38-83) % Lymph % (Auto) 25.5 (25-47) % Chester % (Auto) 10.6 H (0-7) % Eos % (Auto) 2.3 (0-6) % Baso % (Auto) 0.4 (0-2) % Absolute Neuts (auto) 4.1 (1.5-7.7) 10^3/ul Absolute Lymphs (auto) 1.7 (1.0-4.8) 10^3/ul Absolute Monos (auto) 0.7 (0-0.8) 10^3/ul Absolute Eos (auto) 0.2 (0-0.6) 10^3/ul Absolute Basos (auto) 0 (0-0.2) 10^3/ul Absolute Nucleated RBC 0 10^3/ul Nucleated RBC % 0.1 INR (Anticoag Therapy) (0.77-1.02) APTT (26.0-36.3) seconds Sodium 141 (139-145) mmol/L Potassium 4.1 (3.5-5.0) mmol/L Chloride 105 (101-111) mmol/L Carbon Dioxide 29 (22-32) mmol/L Anion Gap 7 (2-11) mmol/L BUN 20 (6-24) mg/dL Creatinine 0.98 (0.67-1.17) mg/dL Est GFR ( Amer) 123.0 (>60) Est GFR (Non-Af Amer) 95.6 (>60) BUN/Creatinine Ratio 20.4 H (8-20) Glucose 99 (70-100) mg/dL Lactic Acid 1.2 (0.5-2.0) mmol/L Calcium 9.5 (8.6-10.3) mg/dL Total Bilirubin 0.20 (0.2-1.0) mg/dL AST 13 (13-39) U/L ALT 29 (7-52) U/L Alkaline Phosphatase 79 (34-104) U/L Troponin I 0.00 (<0.04) ng/mL Total Protein 7.2 (6.4-8.9) g/dL Albumin 4.8 (3.2-5.2) g/dL Globulin 2.4 (2-4) g/dL Albumin/Globulin Ratio 2.0 (1-3) Urine Color Urine Appearance Urine pH (5-9) Ur Specific Noble (1.010-1.030) Urine Protein (Negative) Urine Ketones (Negative) Urine Blood (Negative) Urine Nitrate (Negative) Urine Bilirubin (Negative) Urine Urobilinogen (Negative) Ur Leukocyte Esterase (Negative) Urine Glucose (Negative) Urine Opiates Screen (None Detect) Ur Barbiturates Screen (None Detect) Carbamazepine 11.1 (4.0-12.0) mcg/mL Ur Phencyclidine Scrn (None Detect) Ur Amphetamines Screen (None Detect) U Benzodiazepines Scrn (None Detect) Urine Cocaine Screen (None Detect) U Cannabinoids Screen (None Detect) Serum Alcohol < 10 (<10) mg/dL Result Diagrams: 02/28/18 23:05 02/28/18 23:05 Lab Statement: Any lab studies that have been ordered have been reviewed, and results considered in the medical decision making process. - CT Head CT Interpretation Completed By: Radiologist - EKG 2256 Cardiac Rate: NL EKG Rhythm: Sinus Rhythm - [address] Segment: Non-Specific Ectopy: None EKG Interpretation: nml AVIVCT, nml QTc, and nml axis EKG Comparison: Other - Compared to prior on 08/22/15. EKG from 02/28/18 shows inverted T-wave in III, non-specific. Re-Evaluation - Re-Evaluation First Eval Re-Evaluation Time: 01:35 Change: Improved Comment: Patient says he feels fine. He is watching videos on his laptop. Advised of results of CT and labs. He is agreeable to discharge. Complex Multi-Symp Course/Dx Course Of Treatment: Allergies noted. High blood pressure noted. Patients medications reviewed this visit. Spoke with patient's primary care provider ( Dr. Kristine Leon) at 2238, who has been treating him for right headache and dizziness. Patients numbness concerned her so she referred him to ED. Has past history of admission for conversion disorder in 2015. Has tendency to conversion disorder with mental health issues. Has sleep apnea and lymphatic malformation. Noted that [facility] held off on giving Meclizine since it might interact with his psych meds, Tegretol and Risperdal. Normal CT scan in ED. Labs within normal range, including tegretol level. Normal EKG. Exam nonfocal, has perhaps serous otitis that Dr. Leon can follow. Patient discharged with vertigo and advised to follow up with primary care provider. - Diagnoses Differential Diagnoses/HQI/PQRI: CVA, Metabolic Abnormality, Other - demyelinating disease, tumor, medication interaction, ENT disorder, serous otitis Provider Diagnoses: Vertigo Discharge - Sign-Out/Discharge Documenting (check all that apply): Discharge/Admit/Transfer - home to [facility] - Discharge Plan Condition: Stable Disposition: HOME Patient Education Materials: Vertigo (ED) Referrals: Amanda Ingram MD [Primary Care Provider] - 3 Days Additional Instructions: Your brain CT did not show any abnormalities or any sign of stroke. Your labs were unremarkable, and within normal range. The tegretol level was therapeutic at 11.1. Your EKG was within normal limits and unchanged from your previous one. Follow up with [facility] in 3-5 days. Follow up with Dr. Rivera, neurology, call for an appt [facility]. Please return to the Emergency Department for any new or worsening symptoms. - Billing Disposition and Condition Condition: STABLE Disposition: HOME The documentation as recorded by the Bull kline Tiffany accurately reflects the service I personally performed and the decisions made by me, Robyn Almanza MD.
== END 2018-03-01 02:03 | disposition home or self-care (01) ==
LOC: ED 21:54
DX: R42 Dizziness and giddiness (principal); R51 Headache; R20.0 Anesthesia of skin; R53.1 Weakness; R25.3 Fasciculation; H53.8 Other visual disturbances; J45.909 Unspecified asthma, uncomplicated; F90.9 Attention-deficit hyperactivity disorder, unspecified type; F41.0 Panic disorder [episodic paroxysmal anxiety]; F31.9 Bipolar disorder, unspecified; Z91.5 Personal history of self-harm; Z91.040 Latex allergy status
CPT/HCPCS: 36415; 70450; 80053; 80156; 80307; 80320; 81003; 83605; 84484; 85025; 85610; 85730; 93005; 96360; 99283; G0480

== ENCOUNTER 2019-05-14 15:31 | Emergency (ER) | payer BC ==
--- NOTE | 2019-05-14 17:00 | ED ---
Dizziness - HPI Summary HPI Summary: Patient is a 24 y old M presenting to the [facility] with chief complaint of dizziness and peripheral vision issues starting today around 1245. Patient reports that as the day progressed, his peripheral vision didnt extend very far and there was decreased color intensity particularly in the right eye. Patient reports that although he took his BP medicine, he feels as though he didnt, feeling dizzy and wavy. Symptoms are alleviated by nothing. Symptoms are aggravated by nothing. Patient feels nausea, which he attributes to his eye problems. Patient is unsure about any photophobia. Pt denies any JAIMES, fever, chills, erythema of eyes, sore throat, CP, SOB, cough, abdominal pain, N/V, dysuria, hematuria, myalgia, edema, or rash. Patient is a [employer] student on indefinite medical leave who reports on smoking or alcohol use. Hx of migraines. Patient intends to meet with Dr. Reed at [facility] on 05/21/19. Patient reports to take medicine for bipolar disease and Fludrocortisone for BP. 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 Patient reports that he has not felt any more stress than normal lately and that he has a normal gait currently. - History Of Current Complaint Chief Complaint: EDDizziness Stated Complaint: VISION ISSUES PER PATIENT Time Seen by Provider: 05/14/19 16:46 Hx Obtained From: Patient Onset/Duration: Still Present, Gradually Timing: Hours - today at 1245 Severity Initially: Mild Severity Currently: Mild Character: Dizzy Aggravating Factor(s): Nothing Alleviating Factor(s): Nothing Associated Signs And Symptoms: Negative: Nausea, Vomiting, Diarrhea, Chest Pain , SOB, Unsteady Gait, Fever, Chills - Allergies/Home Medications Allergies/Adverse Reactions: Allergies Allergy/AdvReac Type Severity Reaction Status Date / Time latex Allergy Mild Itching Verified 02/28/18 22:02 peanut Allergy Itching Verified 05/14/19 15:47 strawberry Allergy Itching Verified 05/14/19 15:47 Home Medications: Home Medications Fludrocortisone Acetate TAB* [Florinef TAB*] 0.1 mg PO DAILY 05/14/19 [History Confirmed 05/14/19] PMH/Surg Hx/FS Hx/Imm Hx Endocrine/Hematology History: Denies: Hx Diabetes Cardiovascular History: Denies: Hx Hypertension, Hx Pacemaker/ICD Respiratory History: Reports: Hx Asthma - very mild, Other Respiratory Problems/ Disorders - sleep apnea GI History: Reports: Hx Obstructive Bowel - 2 years ago, Other GI Disorders - hernia, unsure what kind -- right groin region History: Denies: Hx Dialysis, Hx Renal Disease Musculoskeletal History: Reports: Hx Tendonitis - bilat wrist, Other Musculoskeletal History - growth plate in ankle fx in 4th grade; Inguinal Lymphedema on right side Sensory History: Reports: Hx Contacts or Glasses Denies: Hx Hearing Aid Opthamlomology History: Reports: Hx Contacts or Glasses Neurological History: Reports: Hx Headaches, Hx Migraine Denies: Hx Seizures Psychiatric History: Reports: Hx Anxiety, Hx Attention Deficit Hyperactivity Disorder, Hx Depression, Hx Panic Disorder - ANXIETY DISORDER, Hx Inpatient Treatment, Hx Community Mental Health Tx, Hx Bipolar Disorder, Hx Suicide Attempt, Other Psychiatric Issues/Disorders - OCD, conversion disorder Denies: Hx Eating Disorder, Hx of Violent Episodes Against Others - Surgical History Surgery Procedure, Year, and Place: Dental surgeries when he was young. hernia repair in 4th grade and 10th grade. HERNIA REPAIR 11/2015 WITH MESH Hx Anesthesia Reactions: No Infectious Disease History: No Infectious Disease History: Denies: Traveled Outside the [place] in Last 30 Days - Family History Known Family History: Positive: Cardiac Disease - Grandfather had heart attack at 40, father had triple bypass Negative: Other - hernia, grandfather had stroke at 87 y/o - Social History Alcohol Use: None Hx Substance Use: No Substance Use Type: Reports: None Hx Tobacco Use: No Smoking Status (MU): Never Smoked Tobacco Amount Used/How Often: pt has used no tobacco in last 30 days Review of Systems Negative: Fever, Chills Positive: Other - decreased peripheral vision and color intensity. Negative: Photophobia, Erythema Negative: Sore Throat Negative: Chest Pain Negative: Shortness Of Breath, Cough Negative: Abdominal Pain, Vomiting, Nausea Negative: dysuria, hematuria Negative: Myalgia, Edema Negative: Rash Neurological: Other - (+): dizziness Negative: Headache All Other Systems Reviewed And Are Negative: Yes Physical Exam - Summary Physical Exam Summary: Constitutional: Well-developed, Well-nourished, Alert. (-) Distressed Skin: Warm, Dry HENT: Normocephalic; Atraumatic Eyes: Optics tests are sharp, no papilledema Neck: Musculoskeletal ROM normal neck. (-) JVD, (-) Stridor, (-) Tracheal deviation Cardio: Rhythm regular, rate normal, Heart sounds normal; Intact distal pulses; The pedal pulses are 2+ and symmetric. Radial pulses are 2+ and symmetric. (-) Murmur Pulmonary/Chest wall: Effort normal. (-) Respiratory distress, (-) Wheezes, (-) Rales Abd: Soft. (-) Tenderness, (-) Distension, (-) Guarding, (-) Rebound Musculoskeletal: (-) Edema Lymph: (-) Cervical adenopathy Neuro: Alert, Oriented x3, Strength normal, Cranial nerves II-XII are grossly intact. (-) Dysmetria, (-) Nystagmus, (-) Ataxia by finger to nose testing, (-) Sensory deficit. He states Romberg's test is always (+). Psych: Mood and affect Normal GCS: 15 Triage Information Reviewed: Yes Vital Signs On Initial Exam: Initial Vitals Temp Pulse Resp BP Pulse Ox 98.4 F 58 18 139/85 98 05/14/19 15:45 05/14/19 15:45 05/14/19 15:45 05/14/19 15:45 05/14/19 15:45 Vital Signs Reviewed: Yes - [place] Coma Scale Best Eye Response: 4 - Spontaneous Best Motor Response: 6 - Obeys Commands Best Verbal Response: 5 - Oriented Coma Scale Total: 15 Diagnostics - Vital Signs Vital Signs Temp Pulse Resp BP Pulse Ox 05/14/19 16:38 60 116/77 97 05/14/19 16:10 67 97 05/14/19 16:08 54 16 132/81 96 05/14/19 15:45 98.4 F 58 18 139/85 98 - Laboratory Result Diagrams: 05/14/19 17:05 05/14/19 17:05 Lab Statement: Any lab studies that have been ordered have been reviewed, and results considered in the medical decision making process. - CT Brain CT CT Interpretation Completed By: Radiologist Summary of CT Findings: Per radiologist, No evidence of intracranial mass or hemorrhage is noted. ED physician has reviewed this report. Re-Evaluation - Re-Evaluation First Eval Re-Evaluation Time: 17:55 Comment: We discussed discharge home with follow up with opthamology. Dizzy Course/Dx - Course Course Of Treatment: Patient is a 24 y old M presenting to the [facility] with chief complaint of dizziness and peripheral vision issues starting today around 1245. Patient reports that as the day progressed, peripheral vision didnt extend very far and there was decreased color intensity particularly in the right eye. Patient reports feeling dizzy and wavy. Patient feels nausea which he attributes to his eye problems. Patient denies any JAIMES, fever, chills, erythema of eyes, sore throat, CP, SOB, cough, abdominal pain, N/V, dysuria, hematuria, myalgia, edema, or rash. Physical exam reveals Rombergs test is always positive , no ataxia on finger to nose test, optics test are sharp, and no papilledema. Blood results show no abnormalities except carbamazepine 14.4. No medications were given in the ED. Brain CT reveals no evidence of intracranial mass or hemorrhage is noted. I discussed discharge with patient. Patient agreed with plan. Patient will be discharged with dx of visual disturbance. Patient intends to follow up with Dr. Phillips, ophthalmology, and primary care physician within 2-3 days. - Diagnoses Provider Diagnoses: Visual disturbance Discharge - Sign-Out/Discharge Documenting (check all that apply): Patient Departure - discharge Patient Received Moderate/Deep Sedation with Procedure: No - Discharge Plan Condition: Stable Disposition: HOME Patient Education Materials: Dizziness (ED) Referrals: Amanda Ingram MD [Primary Care Provider] - 2 Days Tirso Phillips MD [Medical Doctor] - 2 Days [facility] [Outside] - 2 Days Additional Instructions: Follow up with Dr. Phillips within 2 days and primary care provider and [facility] within 2-3 days. Return to the ED for any new or worsening symptoms. - Billing Disposition and Condition Condition: STABLE Disposition: Home - Attestation Statements Document Initiated by Scribe: Yes Documenting Scribe: Bushra Jhaveri Provider For Whom Scribe is Documenting (Include Credential): Jadon Hendrix MD Scribe Attestation: Bushra Hoover, scribed for Jadon Hendrix MD on 05/14/19 at 1946. Status of Scribe Document: Ready
[2019-05-14 17:19] LABS: Hematocrit 47 % (42-52); Mean Corpuscular HGB Conc 34 g/dL (31-36); Mean Corpuscular Hemoglobin 31 pg (27-31); Mean Corpuscular Volume 91 fL (80-94); Mean Platelet Volume 8.3 fL (7.4-10.4); Platelet Count 174 10^3/uL (150-450); Red Blood Count 5.17 10^6 /uL (4.18-5.48); Red Cell Distribution Width 13 % (10-15); White Blood Count 5.4 10^3/uL (3.5-10.8)
[2019-05-14 17:38] LABS: Albumin 4.7 g/dL (3.2-5.2); Albumin/Globulin Ratio 1.9 (1-3); BUN/Creatinine Ratio 18.3 (8-20); Calcium 9.5 mg/dL (8.6-10.3); EGFR African American 107.1 (>60); EGFR Non-African American 88.5 (>60); Globulin 2.5 g/dL (2-4); Potassium 4.3 mmol/L (3.5-5.0); Total Bilirubin 0.2 mg/dL (0.2-1.0); Total Protein 7.2 g/dL (6.4-8.9)
[2019-05-14 17:58] VITALS: BP 117/84
== END 2019-05-14 17:58 | disposition home or self-care (01) ==
LOC: ED 15:31
DX: H53.9 Unspecified visual disturbance (principal); Z91.040 Latex allergy status
CPT/HCPCS: 36415; 70450; 80053; 80156; 85027; 99282

== ENCOUNTER 2019-08-16 20:42 | Emergency (ER) | payer BC ==
--- OUTSIDE RECORDS SUMMARY | 2019-08-16 20:55 | XMS REPORT | Continuity of Care Document ---
:1995 External Reference #:[id number] Author Name Jason Elaine MD Address [address] [facility] [place] [address] Care Team Providers Name Role Phone Jason Elaine MD - Family Care Team Information Upholsterer Outside Medicine Problems Description No Information Available Social History Type Date Description Comments Sex Unknown ETOH Use Denies alcohol use Tobacco Use Start: Unknown Nonsmoker Smoking Status Reviewed: 07/15/19 Nonsmoker Allergies, Adverse Reactions, Alerts Active Allergies Reaction Severity Comments Date NKDA 07/15/2019 Latex 07/15/2019 Medications Active Medications SIG Qnty Indications Ordering Date Provider Carbamazepine ER 2 capsules by Unknown 300mg Caps mouth twice daily ER 12HR Fludrocortisone Acetate 1 by mouth every Unknown 0.1mg day Tablets Hydroxyzine HCL one by mouth Unknown 10mg Tablets three times a day as needed for anxiety Immunizations CPT Code Status Date Vaccine Lot # [id number] Given 07/15/2019 Influenza vac quadrivalent preservative free 3yrs [id number] and up Vital Signs Date Vital Result Comment 07/15/2019 5:52pm BP Systolic 124 mmHg BP Diastolic 80 mmHg Heart Rate 82 /min Body Temperature 98.6 F Respiratory Rate 16 /min Height 65.25 inches 5'5.25" Weight 179.00 lb BMI (Body Mass Index) 29.6 kg/m2 Results Description No Information Available Procedures Description No Information Available Medical Devices Description No Information Available Encounters Description No Information Available Assessments Date Code Description Provider 07/15/2019 Z00.01 Encounter for general adult medical Jason Elaine MD examination with abnormal findings 07/15/2019 Z23 Encounter for immunization Jason Elaine MD 07/15/2019 D84.9 Immunodeficiency, unspecified Jason Elaine MD Plan of Treatment 07/15/2019 - Jason Elaine MDZ00.01 Encounter for general adult medical examination with abnormal [id number] Encounter for [id number] Immunodeficiency, unspecifiedAllComments:Medication Management Patient Understands medications he's taking? Yes No Are there Barriersto Adherence? Yes No Has the patient been asked about herbal supplements and therapies, and OTC meds? Yes No Functional Status Description No Information Available Mental Status Description No Information Available Referrals Description No Information Available
--- OUTSIDE RECORDS SUMMARY | 2019-08-16 20:55 | XMS REPORT | Continuity of Care Document ---
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 Viremia Saurabh Headley MD Onset: 11/12/2018 Acute bronchitis Oriana Loza, Onset: 12/09/2018 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 Social History Type Date Description Comments Sex Unknown Tobacco Use Start: Unknown Patient has never smoked Tobacco Use Start: Unknown No Second Hand Smoke Exposure Smoking Status Reviewed: 12/09/18 No Second Hand Smoke Exposure Allergies, Adverse Reactions, Alerts Active Allergies Reaction Severity Comments Date Anesthesia 11/12/2018 Latex 11/12/2018 Medications Active Medications SIG Qnty Indications Ordering Provider Date Gamunex-C Infuse 35gms IV Saurabh Adkins 12/09/2018 2.5GM/25ML Q4 weeks MD [facility] Solution Carbamazepine ER Take 2 Capsules Unknown 300mg Caps By Mouth Two ER 12HR Times Daily Advair Diskus Inhale 1 puff By Unknown Mouth Two Times 500-50mcg/Dose Aerosol Daily Maximum Daily Dose Of 2 Per Day Hydroxyzine HCL 1 to 3 tabs Unknown 10mg every 6 hours as Tablets needed fot itching Tylenol 8 Hour 1 by mouth three Unknown 650mg times a day as Tablets ER needed for pain/fever Melatonin 1 by mouth every Unknown 3mg Capsules day Eql Biotin Unknown 5000mcg Capsules Fludrocortisone Acetate Take 1 Tablet By Unknown Mouth Every Day 0.1mg Tablets Medications Administered in Office Medication SIG Qnty Indications Ordering Provider Date Injection Gamunex IV Saurabh Headley MD 03/20/2019 Nonlyophilized 500 MG Injection Injection Gamunex IV Infusion 03/20/2019 Nonlyophilized 500 MG Injection IV Infusion For Saurabh Headley MD 03/20/2019 Therapy,Prophylaxis Or Diagnosis Additional Hour Injection IV Infusion For Infusion 03/20/2019 Therapy,Prophylaxis Or Diagnosis Additional Hour Injection IV Infusion For Saurabh Headley MD 03/20/2019 Therapy,Prophylaxis Or Diagnosis Init Up To 1 HR Injection IV Infusion For Infusion 03/20/2019 Therapy,Prophylaxis Or Diagnosis Init Up To 1 HR Injection Immunizations CPT Code Status Date Vaccine Lot # [id number] Given 11/12/2018 Pneumococcal Vaccine 2Yrs Or Older [id number] Vital Signs Date Vital Result Comment 07/31/2019 11:24am BP Systolic 144 mmHg BP Diastolic 101 mmHg Weight 188.00 lb Heart Rate 69 /min Body Temperature 97.6 F O2 % BldC Oximetry 97 % 06/08/2019 4:31pm BP Systolic 126 mmHg BP Diastolic 92 mmHg Height 67 inches 5'7" Weight 188.00 lb BMI (Body Mass Index) 29.4 kg/m2 Heart Rate 78 /min Respiratory Rate 19 /min Body Temperature 98.8 F O2 % BldC Oximetry 96 % Results Description No Information Available Procedures Date Code Description Status 03/20/2019 14837 IV Infusion For Therapy,Prophylaxis Or Diagnosis Completed Additional Hour 03/20/2019 79258 IV Infusion For Therapy,Prophylaxis Or Diagnosis Completed Additional Hour 03/20/2019 31833 IV Infusion For Therapy,Prophylaxis Or Diagnosis Init Up Completed To 1 HR 03/20/2019 74890 IV Infusion For Therapy,Prophylaxis Or Diagnosis Init Up Completed To 1 HR Medical Devices Description No Information Available Encounters Type Date Location Provider Dx Diagnosis Office Visit 06/08/2019 [place] Adkins D83.8 Other common variable 4:30p MD [facility] immunodeficiencies D80.6 Antibody defic w near-norm immunoglob or w hyperimmunoglob Assessments Date Code Description Provider 06/08/2019 D83.8 Other common variable immunodeficiencies Saurabh Headley MD 06/08/2019 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
[2019-08-16] MEDS ORDERED: diPHENhydraMINE IV* 50 MG/ML 1 ml VIAL (BENADRYL) IV ONE (21:52)
[2019-08-16] MEDS ORDERED: Tetan/Diph/Pertus SYR(Tdap)* 0.5 ML SYR(BOOSTRIX) use SYR contains LATEX IM ONE (21:52)
[2019-08-16] MEDS ORDERED: diPHENhydraMINE PO* 50 MG PO ONE (21:52)
[2019-08-16] MEDS ORDERED: diPHENhydraMINE PO* 25 MG PO ONE (22:15)
[2019-08-16] MEDS ORDERED: LoraTADine TAB(NF) 10 MG TAB (AUTOSUB to CETIRIZINE) PO ONE (22:24)
[2019-08-16] MEDS ORDERED: Cetirizine* 10 MG TAB PO ONE (22:31)
--- NOTE | 2019-08-16 23:12 | ED ---
Laceration/Wound HPI - HPI Summary HPI Summary: Patient complains of laceration to medial surface of the second digit of left hand from cutting vegetables. Bleeding controlled. Tetanus status unknown. Denies any other pain, injury or symptoms. - History of Current Complaint Stated Complaint: FINGER LAC Time Seen by Provider: 08/16/19 21:52 Hx Obtained From: Patient Mechanism of Injury: Sharp/Blunt Trauma Aggravating: Movement Onset Severity: Mild Current Severity: Mild Pain Intensity: 2 Pain Scale Used: 0-10 Numeric Associated Signs & Symptoms: Negative - Additional Pertinent History Primary Care Physician: [id number] - Allergy/Home Medications Allergies/Adverse Reactions: Allergies Allergy/AdvReac Type Severity Reaction Status Date / Time latex Allergy Mild Itching Verified 02/28/18 22:02 gloria Allergy Itching Verified 08/16/19 20:50 peanut Allergy Itching Verified 05/14/19 15:47 strawberry Allergy Itching Verified 05/14/19 15:47 PMH/Surg Hx/FS Hx/Imm Hx Endocrine/Hematology History: Denies: Hx Diabetes Cardiovascular History: Denies: Hx Hypertension, Hx Pacemaker/ICD Respiratory History: Reports: Hx Asthma - very mild, Other Respiratory Problems/ Disorders - sleep apnea GI History: Reports: Hx Obstructive Bowel - 2 years ago, Other GI Disorders - hernia, unsure what kind -- right groin region History: Denies: Hx Dialysis, Hx Renal Disease Musculoskeletal History: Reports: Hx Tendonitis - bilat wrist, Other Musculoskeletal History - growth plate in ankle fx in 4th grade; Inguinal Lymphedema on right side Sensory History: Reports: Hx Contacts or Glasses Denies: Hx Hearing Aid Opthamlomology History: Reports: Hx Contacts or Glasses EENT History: Denies: Hx Deafness Neurological History: Reports: Hx Headaches, Hx Migraine Denies: Hx Seizures Psychiatric History: Reports: Hx Anxiety, Hx Attention Deficit Hyperactivity Disorder, Hx Depression, Hx Panic Disorder - ANXIETY DISORDER, Hx Inpatient Treatment, Hx Community Mental Health Tx, Hx Bipolar Disorder, Hx Suicide Attempt, Other Psychiatric Issues/Disorders - OCD, conversion disorder Denies: Hx Eating Disorder, Hx of Violent Episodes Against Others - Surgical History Surgery Procedure, Year, and Place: Dental surgeries when he was young. hernia repair in 4th grade and 10th grade. HERNIA REPAIR 11/2015 WITH MESH Hx Anesthesia Reactions: No - Immunization History Immunizations Up to Date: Yes Infectious Disease History: No Infectious Disease History: Denies: Traveled Outside the [place] in Last 30 Days - Family History Known Family History: Positive: Cardiac Disease - Grandfather had heart attack at 40, father had triple bypass Negative: Other - hernia, grandfather had stroke at 87 y/o - Social History Alcohol Use: None Hx Substance Use: No Substance Use Type: Reports: None Hx Tobacco Use: No Smoking Status (MU): Never Smoked Tobacco Amount Used/How Often: pt has used no tobacco in last 30 days Review of Systems Constitutional: Negative Eyes: Negative ENT: Negative Cardiovascular: Negative Respiratory: Negative Gastrointestinal: Negative Genitourinary: Negative Musculoskeletal: Negative Skin: Other Neurological: Negative Psychological: Normal All Other Systems Reviewed And Are Negative: Yes Physical Exam Triage Information Reviewed: Yes Vital Signs On Initial Exam: Initial Vitals Temp Pulse Resp BP Pulse Ox 98.2 F 84 15 132/94 97 08/16/19 20:48 08/16/19 20:48 08/16/19 20:48 08/16/19 20:48 08/16/19 20:48 Vital Signs Reviewed: Yes Appearance: Positive: Well-Appearing Skin: Positive: Warm Head/Face: Positive: Normal Head/Face Inspection Eyes: Positive: Normal Neck: Positive: Supple Respiratory/Lung Sounds: Positive: Clear to Auscultation Cardiovascular: Positive: Normal Abdomen Description: Positive: Nontender Musculoskeletal: Positive: Normal Neurological: Positive: Normal Psychiatric: Positive: Normal AVPU Assessment: Alert - Danica Coma Scale Best Eye Response: 4 - Spontaneous Best Motor Response: 6 - Obeys Commands Best Verbal Response: 5 - Oriented Coma Scale Total: 15 Procedures - Sedation Patient Received Moderate/Deep Sedation with Procedure: No - Laceration/Wound Repair 1 Location: upper extremity Description: Linear Length, Depth and Shape: 1cm x .25cm Betadine Prep?: No Irrigated w/ Saline (ccs): 100 Laceration/Wound Explored: clean Closure: Skin Adhesive Debridement: minimal Number of Sutures: 0 Layer Closure?: No Sterile Dressing Applied?: No Diagnostics - Vital Signs Vital Signs Temp Pulse Resp BP Pulse Ox 08/16/19 20:48 98.2 F 84 15 132/94 97 - Laboratory Lab Statement: Any lab studies that have been ordered have been reviewed, and results considered in the medical decision making process. Laceration Repair Course/Dx - Course Course Of Treatment: Patient complains of laceration to medial surface of the second digit of left hand from cutting vegetables. Bleeding controlled. Tetanus status unknown. Denies any other pain, injury or symptoms. Vital signs within normal limits. Wound cleaned and glued. Tetanus shot administered. - Clinical Impression Provider Diagnoses: Laceration Discharge ED - Sign-Out/Discharge Documenting (check all that apply): Patient Departure - Discharge Plan Condition: Stable Disposition: HOME Patient Education Materials: Finger Laceration (ED), Skin Adhesive Care (ED) Referrals: Jason Elaine MD [Primary Care Provider] - Additional Instructions: Keep finger wrapped for 2 days. Afterwards you may wash with running water and soap. Return to the ED for any worsening symptoms. - Billing Disposition and Condition Condition: STABLE Disposition: Home
[2019-08-16 23:28] VITALS: BP 131/97
== END 2019-08-16 23:24 | disposition home or self-care (01) ==
LOC: ED 20:42
DX: S61.211A Laceration without foreign body of left index finger without damage to nail, initial encounter (principal); W26.0XXA Contact with knife, initial encounter; Y93.G1 Activity, food preparation and clean up; Y92.9 Unspecified place or not applicable; Z23 Encounter for immunization; Z91.040 Latex allergy status; Z91.010 Allergy to peanuts; Z91.018 Allergy to other foods
CPT/HCPCS: 12001; 90471; 90715; 99282; A9270-GY

== ENCOUNTER 2020-01-03 16:02 | Emergency (ER) | payer BC ==
--- OUTSIDE RECORDS SUMMARY | 2020-01-03 16:21 | XMS REPORT | Continuity of Care Document ---
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 Uncomplicated moderate persistent asthma Oriana Loza, Onset: 08/17 RPA-C Acute upper respiratory infection Oriana Loza, Onset: 12/07/2019 RPA-C Social History Type Date Description Comments Sex Unknown Tobacco Use Start: Unknown Patient has never smoked Tobacco Use Start: Unknown No Second Hand Smoke Exposure Smoking Status Reviewed: 01/01/20 No Second Hand Smoke Exposure Allergies, Adverse Reactions, Alerts Active Allergies Reaction Severity Comments Date Anesthesia 11/12/2018 Latex 11/12/2018 Medications Active Medications SIG Qnty Indications Ordering Provider Date Proair HFA 2 puffs every 4 25.5gm D83.8 Saurabh Adkins 07/31/2019 108(90Base) as needed MD [facility] mcg/Act Aerosol Gamunex-C Infuse 35gms IV Saurabh Adkins 12/09/2018 2.5GM/25ML Q4 weeks MD [facility] Solution Carbamazepine ER Take 2 Capsules Unknown 300mg By Mouth Two Caps ER 12HR Times Daily Advair Diskus Inhale [...] day Eql Biotin Unknown 5000mcg Capsules Fludrocortisone Take 1 Tablet By Unknown Acetate Mouth Every Day 0.1mg Tablets Famotidine Take 1 Tablet By Unknown 40mg Tablets Mouth Every 12 Hours as Needed For Heartburn Lamotrigine Take 1 Tablet By Unknown 25mg Tablets Mouth Every Morning For 7 Days, Then Take 2 Tablets By Mouth Every Morning For 7 Days, Then Take 3 Tablets By Mouth Every M History Medications Avelox take 1 tab by 14tabs D83.8 Saurabh Adkins 07/31/2019 - 400mg mouth daily for MD [facility] 08/17/2019 Tablets 14 days Prednisone 6 tablets (30 60tabs D83.8 Saurabh Adkins 07/31/2019 - 5mg mg) by mouth MD [facility] 12/07/2019 Tablets twice a day x 5 days Medications Administered in Office Medication SIG Qnty [...] CPT Code Status Date Vaccine Lot # [id number] Given 11/12/2018 Pneumococcal Vaccine 2Yrs Or Older [id number] Vital Signs Date Vital Result Comment 01/01/2020 11:32am BP Systolic 120 mmHg BP Diastolic 76 mmHg Height 67 inches 5'7" Weight 188.00 lb BMI (Body Mass Index) 29.4 kg/m2 Heart Rate 77 /min Respiratory Rate 16 /min O2 % BldC Oximetry 97 % 12/07/2019 3:03pm BP Systolic 132 mmHg BP Diastolic 96 mmHg Height 67 inches 5'7" Weight 188.00 lb BMI (Body Mass Index) 29.4 kg/m2 Heart Rate 106 /min Respiratory Rate 16 /min Body Temperature 97.1 F O2 % BldC Oximetry 97 % Results Test Acquired Date Facility Test Result H/L Range Note Laboratory test 01/01/2020 [facility] <pending> finding [address] [place] [address] [phone] Procedures Description No Information Available Medical Devices Description No Information Available Encounters Type Date Location Provider Dx Diagnosis Office Visit 01/01/2020 [facility] Saurabh Adkins D83.8 Other common variable 11:30a MD [facility] immunodeficiencies D80.6 Antibody defic w near-norm immunoglob or w hyperimmunoglob B34.9 Viral infection, unspecified Office Visit 12/07/2019 Waldemar Kilgore J06.9 Acute upper respiratory 3:00p Fenstermacher, RPA-C infection, unspecified Office Visit 08/17/2019 Waldemar Kilgore D83.8 Other common variable 4:30p Fenstermacher, RPA-C immunodeficiencies D80.6 Antibody defic w near-norm immunoglob or w hyperimmunoglob J45.40 Moderate persistent asthma, uncomplicated Office Visit 07/31/2019 11:30a Waldemar Adkins D83.8 Other common variable MD [facility] immunodeficiencies D80.6 Antibody defic w near-norm immunoglob or w hyperimmunoglob J20.9 Acute bronchitis, unspecified B34.9 Viral infection, unspecified Assessments Date Code Description Provider 01/01/2020 D83.8 Other common variable immunodeficiencies Saurabh Headley MD 01/01/2020 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 Headley, MD 12/07/2019 J06.9 Acute upper respiratory infection, Oriana BoucherMichelle Meghastermbernadiner, unspecified RPA-C 08/17/2019 D83.8 Other common variable immunodeficiencies Oriana S. Fenstermacher, RPA-C 08/17/2019 D80.6 Antibody deficiency with near-normal Oriana S. Fenstermacher , immunoglobulins or with RPA-C hyperimmunoglobulinemia 08/17/2019 J45.40 Moderate persistent asthma, Oriana S. 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
--- OUTSIDE RECORDS SUMMARY | 2020-01-03 16:21 | XMS REPORT | Continuity of Care Document ---
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 Viremia Saurabh Headley MD Onset: 11/12/2018 Acute bronchitis Oriana Loza, Onset: 12/09/2018 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 Acute upper respiratory infection Oriana Loza, Onset: 12/07/2019 RPA-C Uncomplicated moderate persistent asthma Oriana Loza, Onset: 08/17 RPA-C Social History Type Date Description Comments Sex Unknown Tobacco Use Start: Unknown Patient has never smoked Tobacco Use Start: Unknown No Second Hand Smoke Exposure Smoking Status Reviewed: 12/07/19 No Second Hand Smoke Exposure Allergies, Adverse [...] CPT Code Status Date Vaccine Lot # [id number] Given 11/12/2018 Pneumococcal Vaccine 2Yrs Or Older [id number] Vital Signs Date Vital Result Comment 12/07/2019 3:03pm BP Systolic 132 mmHg BP Diastolic 96 mmHg Height 67 inches 5'7" Weight 188.00 lb BMI (Body Mass Index) 29.4 kg/m2 Heart Rate 106 /min Respiratory Rate 16 /min Body Temperature 97.1 F O2 % BldC Oximetry 97 % 08/17/2019 4:32pm BP Systolic 128 mmHg BP Diastolic 88 mmHg Height 67 inches 5'7" Weight 188.00 lb BMI (Body Mass Index) 29.4 kg/m2 Heart Rate 72 /min Respiratory Rate 16 /min Body Temperature 97.2 F O2 % BldC Oximetry 99 % Results Description No Information Available Procedures Description No Information Available Medical Devices Description No Information Available Encounters Type Date Location Provider Dx Diagnosis Office Visit 12/07/2019 Waldemar Kilgore J06.9 Acute upper respiratory 3:00p Fenstermacher, infection, unspecified RPA-C Office Visit 08/17/2019 Wal[place] Kilgore D83.8 Other common variable 4:30p Fenstermacher, immunodeficiencies RPA-C D80.6 Antibody defic w near-norm immunoglob or w hyperimmunoglob J45.40 Moderate persistent asthma, uncomplicated Office Visit 07/31/2019 11:30a Waldemar Adkins D83.8 Other common variable MD [facility] immunodeficiencies D80.6 Antibody defic w near-norm immunoglob or w hyperimmunoglob J20.9 Acute bronchitis, unspecified B34.9 Viral infection, unspecified Office Visit 06/08/2019 4:30p Guanaco Adkins D83.8 Other common variable MD [facility] immunodeficiencies D80.6 Antibody defic w near-norm immunoglob or w hyperimmunoglob Assessments Date Code Description Provider 12/07/2019 J06.9 Acute upper respiratory infection, Oriana Clevelandstermacher, unspecified RPA-C 08/17/2019 D83.8 Other common variable immunodeficiencies Oriana S. Fenstermacher, RPA-C 08/17/2019 D80.6 Antibody deficiency with near-normal Oriana S. 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 Rapid respiratory panel is negative. Patient afebrile today in the office. Ihave discussed supportive care for URI's, including clear fluids and rest. Patient to contact the office if his fever returns or symptoms last longer than 10 days.Follow up:If condition worsens. Functional Status Description No Information Available Mental Status Description No Information Available Referrals Description No Information Available
[2020-01-03 16:51] LABS: Influenza A Molecular Negative (Negative); Influenza B Molecular Negative (Negative)
--- NOTE | 2020-01-03 16:58 | ED ---
Respiratory - HPI Summary HPI Summary: 24 y/o male presented to [facility] for flu-like sx present since this morning. Pt had rhinorrhea for days but woke up today with myalgia, JAIMES, neck pain, sore throat, congestion, postnasal drip, nausea, wheezing, and vertigo. Pt also has no appetite. He has had intermittend sharp abd pain for weeks. Pt took Tylenol and albuterol but this did not help. Pt has an immunodeficiency disorder and sees Dr. Headley at [facility]. Medications reviewed. Allergies noted. Home Medications Medication Instructions Recorded Confirmed Type Albuterol HFA INHALER* [Ventolin 2 puff INH Q4H PRN 02/03/18 05/14/19 History HFA Inhaler*] carBAMazepine ER TAB(*) [Tegretol 600 mg PO BID 02/03/18 05/14/19 History Xr TAB(*)] Acetaminophen TAB* [Tylenol TAB*] 650 mg PO Q4H PRN 02/28/18 05/14/19 History Fludrocortisone Acetate TAB* 0.1 mg PO DAILY 05/14/19 05/14/19 History [Florinef TAB*] - History of Current Complaint Chief Complaint: EDFluSymptoms Stated Complaint: COUGH/CONGESTION PER PT Time Seen by Provider: 01/03/20 16:46 Hx Obtained From: Patient Onset/Duration: Lasting Hours, Still Present Current Severity: Moderate Pain Intensity: 7 Associated Signs and Symptoms: Wheezing, Nasal Congestion - Allergy/Home Medications Allergies/Adverse Reactions: Allergies Allergy/AdvReac Type Severity Reaction Status Date / Time latex Allergy Mild Itching Verified 01/03/20 16:10 gloria Allergy Itching Verified 01/03/20 16:10 peanut Allergy Itching Verified 01/03/20 16:10 strawberry Allergy Itching Verified 01/03/20 16:10 Home Medications: Home Medications Albuterol HFA INHALER* [Ventolin HFA Inhaler*] 2 puff INH Q4H PRN 02/03/18 [ History Confirmed 05/14/19] carBAMazepine ER TAB(*) [Tegretol Xr TAB(*)] 600 mg PO BID 02/03/18 [History Confirmed 05/14/19] Acetaminophen TAB* [Tylenol TAB*] 650 mg PO Q4H PRN 02/28/18 [History Confirmed 05/14/19] Fludrocortisone Acetate TAB* [Florinef TAB*] 0.1 mg PO DAILY 05/14/19 [History Confirmed 05/14/19] PMH/Surg Hx/FS Hx/Imm Hx Endocrine/Hematology History: Denies: Hx Diabetes Cardiovascular History: Denies: Hx Hypertension, Hx Pacemaker/ICD Respiratory History: Reports: Hx Asthma - very mild, Other Respiratory Problems/ Disorders - sleep apnea GI History: Reports: Hx Obstructive Bowel - 2 years ago, Other GI Disorders - hernia, unsure what kind -- right groin region History: Denies: Hx Dialysis, Hx Renal Disease Musculoskeletal History: Reports: Hx Tendonitis - bilat wrist, Other Musculoskeletal History - growth plate in ankle fx in 4th grade; Inguinal Lymphedema on right side Sensory History: Reports: Hx Contacts or Glasses Denies: Hx Deafness, Hx Hearing Aid Opthamlomology History: Reports: Hx Contacts or Glasses Neurological History: Reports: Hx Headaches, Hx Migraine Denies: Hx Seizures Psychiatric History: Reports: Hx Anxiety, Hx Attention Deficit Hyperactivity Disorder, Hx Depression, Hx Panic Disorder - ANXIETY DISORDER, Hx Inpatient Treatment, Hx Community Mental Health Tx, Hx Bipolar Disorder, Hx Suicide Attempt, Other Psychiatric Issues/Disorders - OCD, conversion disorder Denies: Hx Eating Disorder, Hx of Violent Episodes Against Others - Cancer History Cancer Type, Location and Year: PRE CANCER - Surgical History Surgery Procedure, Year, and Place: Dental surgeries when he was young. hernia repair in 4th grade and 10th grade. HERNIA REPAIR 11/2015 WITH MESH. BONE BIOPSY - [facility] Hx Anesthesia Reactions: No Infectious Disease History: No Infectious Disease History: Denies: Traveled Outside the [place] in Last 30 Days - Family History Known Family History: Positive: Cardiac Disease - Grandfather had heart attack at 40, father had triple bypass Negative: Other - hernia, grandfather had stroke at 87 y/o - Social History Alcohol Use: None Hx Substance Use: No Substance Use Type: Reports: None Hx Tobacco Use: No Smoking Status (MU): Never Smoked Tobacco Amount Used/How Often: pt has used no tobacco in last 30 days Review of Systems Positive: Sore Throat, Other - congestion, postnasal drip Positive: Other - wheezing Positive: Myalgia, Other - neck pain Neurological/Mental Status: Other - vertigo Positive: Headache All Other Systems Reviewed And Are Negative: Yes Physical Exam - Summary Physical Exam Summary: Constitutional: Well-developed, Well-nourished, Alert. (-) Distressed Skin: Warm, Dry HENT: Normocephalic; Atraumatic Eyes: Conjunctiva normal Neck: Musculoskeletal ROM normal neck. (-) JVD, (-) Stridor, (-) Tracheal deviation Cardio: Rhythm regular, rate normal, Heart sounds normal; Intact distal pulses; Radial pulses are 2+ and symmetric. (-) Murmur Pulmonary/Chest wall: Effort normal. (-) Respiratory distress, (-) Wheezes, (-) Rales Abd: Soft, (-) tenderness, (-) Distension, (-) Guarding, (-) Rebound Musculoskeletal: (-) Edema, Good pulses bilaterally in radius, No calf tenderness, No venous cords, No pain with dorsiflexion of foot. Lymph: (-) Cervical adenopathy Neuro: Alert, Oriented x3 Psych: Mood and affect Normal Triage Information Reviewed: Yes Vital Signs On Initial Exam: Initial Vitals Temp Pulse Resp BP Pulse Ox 98.6 F 80 18 145/105 98 01/03/20 16:06 01/03/20 16:06 01/03/20 16:06 01/03/20 16:06 01/03/20 16:06 Vital Signs Reviewed: Yes Procedures - Sedation Patient Received Moderate/Deep Sedation with Procedure: No Diagnostics - Vital Signs Vital Signs Temp Pulse Resp BP Pulse Ox 01/03/20 16:06 98.6 F 80 18 145/105 98 - Laboratory Lab Results: Lab Results 01/03/20 Range/Units 16:20 Influenza A (Rapid) Negative (Negative) Influenza B (Rapid) Negative (Negative) Lab Statement: Any lab studies that have been ordered have been reviewed, and results considered in the medical decision making process. - Radiology cxr Radiology Interpretation Completed By: Radiologist Summary of Radiographic Findings: IMPRESSION: No radiographic evidence of acute cardiopulmonary disease. This report was reviewed by the ED physician. Disposition - Course Course Of Treatment: Patient is here with cough, congestion, bodyaches. Patient is overall well-appearing does have a history of CVI D which is concerning to him. Patient had negative influenza swab and chest x-ray. Patient had normal vital signs. Patient was discharged with follow-up with his continuous improvement analyst. - Diagnoses Provider Diagnoses: Cough, Body aches Discharge ED - Sign-Out/Discharge Documenting (check all that apply): Patient Departure - Discharge Plan Condition: Stable Disposition: HOME Patient Education Materials: Upper Respiratory Infection (ED) Referrals: Jason Elaine MD [Primary Care Provider] - Additional Instructions: Please take Motrin and Tylenol for pain Please call your specialist tomorrow for follow-up Please return if you have trouble breathing, severe chest pain, any other concerning symptoms - Billing Disposition and Condition Condition: STABLE Disposition: Home - Attestation Statements Document Initiated by Kaylee: Yes Documenting Scribe: Jose Goddard Provider For Whom Kaylee is Documenting (Include Credential): Vitaliy Daniels MD Scribe Attestation: Jose Hoover, scribed for Vitaliy Daniels MD on 01/03/20 at 1842. Scribe Documentation Reviewed: Yes Provider Attestation: The documentation as recorded by the Jose kline accurately reflects the service I personally performed and the decisions made by , Vitaliy Daniels MD Status of Scribe Document: Viewed
[2020-01-03 18:26] VITALS: BP 129/73
== END 2020-01-03 18:26 | disposition home or self-care (01) ==
LOC: ED 16:02
DX: R05 Cough (principal); M79.10 Myalgia, unspecified site; J45.909 Unspecified asthma, uncomplicated; Z79.51 Long term (current) use of inhaled steroids; Z91.040 Latex allergy status; Z91.010 Allergy to peanuts; Z91.018 Allergy to other foods
CPT/HCPCS: 71046; 99282